=== PATIENT | female | born 1950 | race Caucasian/White ===

== ENCOUNTER 2023-11-17 13:22 | Outpatient (OUT) | payer MEDICARE, SELFPAY ==
--- NOTE | 2023-11-17 13:31 | VEIN_ITS ---
Patient Name: DIANA MEYER MR#: [id number] : 1950 Exam Date: 11/17/2023 Ordering Doctor: DR VARUN HARPER M.D. RADIOLOGY REPORT PROCEDURE: VC EXT VENOUS REFLUX RODOLFO LMTD COMPARISON: None. INDICATIONS: Pain due to varicose veins of bilateral legs I83.813 TECHNIQUE: Duplex imaging of the lower extremity to assess the deep and superficial venous system for the presence of deep or superficial venous incompetence and to document the location and severity of disease. The study includes evaluation of the great saphenous vein (GSV), anterior accessory saphenous vein (AASV) and small saphenous vein (SSV). Patient scanned in reverse Trendelenburg and standing. FINDINGS: RIGHT LOWER EXTREMITY: Saphenofemoral Junction Reflux: YesNo 7.8mm 0 sec GSV: Diam (mm) Reflux/ Time (sec) Proximal Thigh 7.3 No 0 Mid Thigh 2.5 No Distal Thigh 2.7 No Prox Calf 2.8 Yes 0.2 Mid Calf 0.9 Yes 3.2 Saphenopopliteal Junction Reflux: 4.0mm Yes 0.4 SSV: Proximal Calf 4.0 No Mid Calf 2.1 No AASV: Proximal Thigh 1.9 No Mid Thigh Distal Thigh Thrombi: No acute or chronic thrombus Compressibility: Normal. Flow: Mild deep venous reflux. Preforator: None. Tech Note: Varicose vein proximal medial lower leg measures 2.2 mm without reflux. LEFT LOWER EXTREMITY: Saphenofemoral Junction Reflux: Yes 8.8 mm 3.4 sec GSV: Diam (mm) Reflux/Time (sec) Proximal Thigh 6.0 Yes 1.1 Mid Thigh 5.8 Yes 2.6 Distal Thigh 5.1 Yes 0.3 Prox Calf 4.0 Yes 1.6 Mid Calf 2.5 Yes 0.6 Saphenopopliteal Junction Relux: 5.6 mm Yes 0.2 SSV: Proximal Calf 5.1 Yes 1.9 Mid Calf 3.1 No AASV: Proximal Thigh 2.9 No Mid Thigh 1.6 Yes 0.4 Distal Thigh Thrombi: No acute or chronic thrombus. Compressibility: Normal. Flow: Severe deep venous reflux. Police Lieutenant: None. Tech Note: Incompetent varicose vein proximal medial lower leg measures 3.1 mm with 2.7s reflux. Varicose vein distal medial thigh measures 2.7 mm with 1.8s reflux. CONCLUSION: 1. Moderate venous insufficiency of the left great saphenous vein with dilatation and saphenofemoral junction reflux 2. Borderline enlarged left leg varicose veins with reflux 3. Mild right and severe left deep vein reflux Dictated by: Varun Harper MD on 11/17/2023 at 14:46 Approved by: Varun Harper MD on 11/17/2023 at 14:48
--- NOTE | 2023-11-17 13:31 | VEIN_ITS ---
Patient Name: DIANA MEYER MR#: [id number] : 1950 Exam Date: 11/17/2023 Ordering Doctor: DR VARUN HARPER M.D. RADIOLOGY REPORT PROCEDURE: FACILITY [facility] - OFFICE VISIT INITIAL COMPARISON: None. PROGRESS NOTES: 73-year-old female who presents with a 20 year history of lower extremity pain swelling and varicose veins. The patient complains of discomfort with prolonged sitting and standing, partially relieved by rest, leg elevation and compression stockings. The patient had treatments approximately 15 years ago with phlebectomy and injection sclerotherapy. The patient does report increase in edema and pain in the last 1-2 years. 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 The patient denies any signs and symptoms to suggest arterial ischemia. The patient describes a family history significant for varicose veins in her mother and father. Stroke in her mother. Cancer in her father. . Social alcohol use. The patient has never smoked. No drug use. Past surgical history is significant for hysterectomy. No history of deep venous thrombus or pulmonary embolus. See separate history and physical for medication list. No prior treatment for varicose or spider veins. Nursing notes were reviewed. After history and physical exam I discussed at length the pathophysiology of venous hypertension and possible treatments, therapies and strategies available. We discussed at length the importance of elevating the lower extremities above the level of the heart, increased physical activity and compression stocking use. We discussed surgical interventions including ligation and stripping and phlebectomy. Discussed intravenous laser ablation, micro foam chemical ablation and injection sclerotherapy at length. I discussed with the patient that she had severe left leg deep vein reflux which could be medicated through the use of long-term compression stocking use. Ultrasound venous reflux study performed the same day was discussed at length with the patient. The report demonstrates mild right and moderate left great saphenous vein venous insufficiency. Left leg varicose veins. PHYSICAL EXAM: The right leg demonstrates mild scattered reticular and spider veins. No active ulceration, subcutaneous edema or skin discoloration The left leg demonstrates mild scattered varicose, moderate reticular and spider veins. No active ulceration or skin discoloration. Mild subcutaneous edema Both thighs, legs and feet were symmetrically warm to the touch. Good posterior tibial and dorsalis pedis pulses were present bilaterally. VEIN/VC Facility NEW Comprehensive IMPRESSION: 1. Minimal right and moderate left great saphenous vein venous insufficiency 2. Mild left lower extremity varicose veins 3. Mild left lower extremity subcutaneous edema 4. No definite flow significant arterial disease 5. CEAP: C3, Ep, As, Pr PLAN: 1. Endovenous laser ablation of the left great saphenous vein 2. Injection sclerotherapy bilateral reticular spider veins 3. Views of by 4. 20-30 compression stockings continue leg elevation and increased physical activity for symptomatic relief Nurse notes, history and physical were reviewed and confirmed, see attached forms. The nurse was present throughout the physical exam and consultation Dictated by: Varun Harper MD on 11/17/2023 at 15:16 Approved by: Varun Harper MD on 11/17/2023 at 15:20
== END 2023-11-17 13:23 | disposition home or self-care (01) ==
PROVIDERS: PCP Radiology Diagnostic Radiology; Visit Provider Radiology Diagnostic Radiology
DX: I83.813 Varicose veins of bilateral lower extremities with pain (principal)
CPT/HCPCS: 93970; G0463

== ENCOUNTER 2024-02-22 10:09 | Outpatient (OUT) | payer MEDICARE, SELFPAY ==
[2024-02-22 08:22] VITALS: BMI 24.4
--- NOTE | 2024-02-22 08:22 | VEINCLINIC_ITS ---
Vital Signs 02/22/24 08:22 02/22/24 10:18 Height 5 ft 4 in Weight 64.41 kg BMI 24.4 BP 130/72 BP Location Left Brachial BP Position Standing BP Cuff Size Adult BP Source Manual Cuff Respiration 18 Pulse 91 H Pulse Source Monitor Pulse Oximetry (%) 95 Oxygen Delivery Method Room Air Comment The patient's blood pressure is elevated. Varicose Veins Patient in this day for EVLT of left GSV Patient is a 73 year old female in this day with c/o bilateral lower leg pain and edema x15 years. Rahul Maldonado MD personally performed the services described in this documentation, as scribed by Matt Hein RN in my presence and it is both accurate and complete. IMatt RN, am scribing for, and in the presence of, Dr. Rahul Steen and in the presence of the patient. knee: bilateral (patient c/o varicose veins bilateral legs), calf: bilateral, ankle: bilateral and anderson: bilateral aching, dull and tender 3 20 years Worsened in recent months: Yes standing elevating extremities, compression stockings and exercise Reports muscle spasms of leg, heaviness, limb pain and edema History of lower extremity trauma: No Superficial thrombophlebitis: No Family history of varicose veins: yes Has patient had previous lower extremity venous surgery: Yes Patient has previously received the following treatment(s) for lower extremity varicose veins: Reports phlebectomy and sclerotherapy Does patient have a history of : yes Does patient intend to have future pregnancies: no Has patient had lower extremity venous scan with relux testing: Yes Support hose used: Yes Problems walking or doing physical activity: Yes How does it affect you: often had to stop and elevate legs/feet Do you walk much: Yes Do you stand much: Yes Review of Systems ROS Narrative Rahul Maldonado MD personally performed the services described in this documentation, as scribed by Matt Hein RN in my presence and it is both accurate and complete. Matt Maldonado RN, am scribing for, and in the presence of, Dr. Rahul Steen and in the presence of the patient. Status of ROS 10 or more systems reviewed and unremark able except as noted in history and below Cardiovascular Reports: edema Integumentary/Breast Reports: non-healing lesion and changes in skin color Neurological Reports: weakness in extremities Hematologic/Lymphatic Reports: easy bruising and easy bleeding PFSH PFSH Medical History (Updated 02/22/24 @ 08:34 by Matt Hein) Fibromyalgia ?M79.7 - Fibromyalgia (ICD-10) Phlebitis and thrombophlebitis of superficial vessels of right lower extremity ?I80.01 - Phlebitis and thrombophlebitis of superficial vessels of right lower extremity (ICD-10) Phlebitis and thrombophlebitis of superficial vessels of left lower extremity ?I80.02 - Phlebitis and thrombophlebitis of superficial vessels of left lower extremity (ICD-10) Pain due to varicose veins of both lower extremities ?I83.813 - Varicose veins of bilateral lower extremities with pain (ICD-10) Surgical History (Updated 02/22/24 @ 08:34 by Matt Hein) H/O: hysterectomy ?Z90.710 - Acquired absence of both cervix and uterus (ICD-10) Family History (Updated 02/22/24 @ 08:35 by Matt Hein) Other Family history of cancer Family history of stroke Varicose veins of bilateral lower extremities with pain Social History (Updated 02/22/24 @ 08:37 by Matt Hein) Within the past year, how often did you have a drink containing alcohol: 2-4 times a month Smoking status: Never smoker Non-prescribed substance use: denies use Meds Home Medications and Allergies Home Medications ?Medication ?Instructions ?Recorded ?Confirmed ?Type amitriptyline .ROUTE 02/22/24 History citalopram .ROUTE 02/22/24 History Allergies Allergy/AdvReac Type Severity Reaction Status Date / Time aspirin Allergy Rash Verified 02/22/24 10:54 povidone-iodine Allergy Rash Verified 02/22/24 10:54 [From Betadine] Exam Narrative Exam Narrative: IRahul MD personally performed the services described in this documentation, as scribed by Matt Hein RN in my presence and it is both accurate and complete. IMatt RN, am scribing for, and in the presence of, Dr. Rahul Steen and in the presence of the patient. Constitutional Documenting provider has reviewed patient's vital signs: yes Common normals: oriented x3 Cardio Peripheral pulses: dorsalis pedis pulses present Extremity Common normals: normal capillary refill General: edema Right lower extremity: lower leg Right lower leg: inspection and palpation Left lower extremity: lower leg Left lower leg: inspection and palpation Neuro Common normals: oriented x3 Assessment and Plan Assessment and Plan (1) Pain due to varicose veins of both lower extremities: Plan Plan of care: Risks and benefits of the procedure were discussed at length and informed written consent was obtained.? Time-out completed for verification of correct patient, procedure and site.? Staff present during time-out: Matt Hein RN,? Varun Harper MD, Danae Lopez RDMS,RVT, Suzi ([employer] student) Time Out Time_1053 Patient prepped and procedure performed in usual sterile fashion. Risk of injury related to use of Diode laser and/or laser devices__CR___ ? Serial number of laser used :? [id number] Control panel self test performed, electrical cords in good condition, floor is dry, basin of water available, fire extinguisher in close proximity_CR__ Polycarbonate goggles available and Laser warning signs outside of doors___CR__ Eye protection provided to patient and staff in room_CR___ Use of laser retardant drapes and dull blackened instruments as directed__CR___ Use of nonflammable prep solutions and use of saline soaked sponges to protect tissues as indicated _CR___ Length _55___ cm Laser operated by __Dr. Steen Physician verbal confirmation laser locked in place__CR__ Laser start time (date and time) _02/22/2024@_1108 Laser stop time(date and time) _02/22/2024@_1116 An _8.0___ Average laser use __3282 Joules Average laser use__410 seconds Pulse continuous ___CR_? Pulse intermittent ___ Amount of Tumescent used _250cc Evaluated patient for signs and symptoms of electrical injury __CR___ ? Skin clear at insertion site __CR___ Patient tolerated procedure well.? Left leg Coban dressing applied to access site.? Applied Left thigh high leg compression stocking. Will return on 02/29/2024 for Left leg limited venous ultrasound and exam. IRahul MD personally performed the services described in this documentation, as scribed by Matt Hein RN in my presence and it is both accurate and complete. IMatt RN, am scribing for, and in the presence of, Dr. Rahul Steen and in the presence of the patient.
--- NOTE | 2024-02-22 08:40 | P.DS_ITS ---
Discharge Plan Discharge Disposition: Home, Self-Care Outpatient Diagnostics: VC Facility EST LMTD (Routine) Timeframe: 2 Weeks Facility: [facility] - Location: [facility] Ordered By: Varun Harper VC EXT Venous Reflux LT LMTD (Routine) Timeframe: 2 Weeks Facility: [facility] - Location: Vein Center Ordered By: Varun Harper Follow Up Appointments: 02/29/2024@1330 Plan of Treatment: f/u evaluation by physician with left leg limited u/s Patient Instructions: Endovenous Ablation (DC) Print Language: [place] Discharge Date/Time: 02/22/24 10:59
[2024-02-22] MEDS: 0.9 % SODIUM CHLORIDE 500 ML, LIDOCAINE HCL 20 ML, SODIUM BICARBONATE 10 MEQ INJ (10:10)
[2024-02-22] MEDS: LIDOCAINE HCL 1% 100 MG/10 ML MDV INJ (10:10)
--- NOTE | 2024-02-22 10:10 | VEIN_ITS ---
[address] [address] Patient Name: DIANA MEYER MRN: [id number] date: 1950 Sex: F Assigned Patient Location: Current Patient Location: Accession/Order Number: [id number] Exam Date: 02/22/2024 10:14 Report Date: 02/22/2024 12:13 At the request of: ALEX LYNCH Procedure: VC Endovenous Ablation 1VeinLT EXAMINATION: VC Endovenous Ablation 1VeinLT HISTORY: I83.813 Bilateral painful varicose veins The risks and benefits of the procedure had been previously discussed, and were rediscussed at length. Informed written consent was obtained. Matt Hein RN and Danae Lopez RDMS, RVT assisted. Time out procedure was performed. The left lower extremity was prepared and draped in the usual sterile fashion to allow knee flexion in the sterile field. Duplex ultrasound probe was draped in a sterile cover, sterile transmission gel was used. Venous mapping was performed with the areas of dilation and large tributaries marked. The total length was 55 cm from the entry mid calf to 3 cm below the Saphenofemoral junction. The diameter of the left great saphenous vein ranged from 6.0 mm. A 30 gauge needle and 1% buffered lidocaine was used to anesthetize the entry site. A 4 mm incision was made with a scalpel and the saphenous vein was entered percutaneously under direct ultrasound guidance with a micropuncture set, a single stick was successful in gaining access. A micro-guide wire was inserted and the needle removed. A micro-set including a dilator was inserted over the microwire and the needle and dilator were removed. A guide wire was inserted through the micro-set and guided through the saphenous vein to the saphenofemoral junction. The dilator was removed and an introducer sheath was inserted over the wire until the end of the sheath entered the saphenofemoral junction. The dilator and wire were removed and the 600 micron fiber was introduced and placed and positioned so that it extended beyond the sheath and was 3 cm distal to the saphenofemoral or saphenopopliteal junction. Final position of the fiber was determined by ultrasound guidance and duplex imaging. Tumescent anesthetic was delivered by ultrasound guidance. 250 cc of fluid was delivered along the entire course of the saphenous vein. The solution consisted of 1000 cc of normal saline with 40 mL of 1% lidocaine and 20 mL of sodium bicarbonate. A final positioning check was made. The energy source was turned on by means of the foot pedal and the fiber and sheath were withdrawn. The total number of Joules delivered was 3282. The laser was active for 410 seconds under continuous pulse, average laser use of 8 J. Laser start time: 11:08 AM Laser stop time: 11:16 AM Date: 02/22/2024. A duplex ultrasound revealed compressibility and flow at the saphenofemoral junction immediately after the procedure. Hemostasis at the access site was achieved. The skin incision of the saphenous vein was closed with a 4 x 4. A compression stocking was applied. Postop instructions were given. A follow up appointment was recommended and scheduled. The patient tolerated the procedure well. Electronically authenticated by: JAY SOTELO Date: 02/22/2024 12:13
[2024-02-22 10:18] VITALS: BP 130/72; PULSE 91; O2SAT 95
--- NOTE | 2024-02-22 10:59 | W.VEIN ---
Discharge Plan Discharge Disposition: Home, Self-Care Outpatient Diagnostics: VC Facility EST LMTD (Routine) Timeframe: 2 Weeks Facility: [facility] - Location: Vein Center Ordered By: Varun Harper VC EXT Venous Reflux LT LMTD (Routine) Timeframe: 2 Weeks Facility: [facility] - Location: Vein Center Ordered By: Varun Hraper Follow Up Appointments: 02/29/2024@1330 Plan of Treatment: f/u evaluation by physician with left leg limited u/s Patient Instructions: Endovenous Ablation (DC) Print Language: Taiwanese Discharge Date/Time: 02/22/24 10:59
== END 2024-02-22 10:59 | disposition home or self-care (01) ==
LOC: VC 10:09
PROVIDERS: PCP Radiology Diagnostic Radiology; Visit Provider Radiology Diagnostic Radiology
DX: I83.813 Varicose veins of bilateral lower extremities with pain (principal)
CPT/HCPCS: 36478

== ENCOUNTER 2024-03-01 13:57 | Outpatient (OUT) | payer MEDICARE, SELFPAY ==
[2024-02-28 15:09] VITALS: BMI 24.2
--- NOTE | 2024-02-28 15:09 | V.VEINS.HP ---
Vital Signs 02/28/24 15:09 Height 5 ft 4 in Weight 64 kg BMI 24.2 Varicose Veins Patient in this day for follow up ultrasound post EVLT of left GSV Varun Maldonado MD personally performed the services described in this documentation, as scribed by Danae Lopez RVT, RDMS in my presence and it is both accurate and complete. IDanae RVT, RDMS, am scribing for, and in the presence of, Dr. Varun Harper and in the presence of the patient. knee: bilateral (patient c/o varicose veins bilateral legs), calf: bilateral, ankle: bilateral and anderson: bilateral aching, dull and tender 3 20 years Worsened in recent months: Yes standing elevating extremities, compression stockings and exercise Reports muscle spasms of leg, heaviness, limb pain and edema History of lower extremity trauma: No Superficial thrombophlebitis: No Family history of varicose veins: yes Has patient had previous lower extremity venous surgery: Yes Patient has previously received the following treatment(s) for lower extremity varicose veins: Reports phlebectomy and sclerotherapy Does patient have a history of : yes Does patient intend to have future pregnancies: no Has patient had lower extremity venous scan with relux testing: Yes Support hose used: Yes Problems walking or doing physical activity: Yes How does it affect you: often had to stop and elevate legs/feet Do you walk much: Yes Do you stand much: Yes Review of Systems ROS Narrative Varun Maldonado MD personally performed the services described in this documentation, as scribed by Danae Lopez RVT, RDMS in my presence and it is both accurate and complete. I, Danae Lopez RVT, RDMS, am scribing for, and in the presence of, Dr. Varun Harper and in the presence of the patient. Status of ROS 10 or more systems reviewed and unremarkable except as noted in history and below Cardiovascular Reports: edema Integumentary/Breast Reports: non-healing lesion and changes in skin color Neurological Reports: weakness in extremities Hematologic/Lymphatic Reports: easy bruising and easy bleeding [facility] Medical History (Updated 02/22/24 @ 08:34 by Matt Hein) Fibromyalgia ?M79.7 - Fibromyalgia (ICD-10) Phlebitis and thrombophlebitis of superficial vessels of right lower extremity ?I80.01 - Phlebitis and thrombophlebitis of superficial vessels of right lower extremity (ICD-10) Phlebitis and thrombophlebitis of superficial vessels of left lower extremity ?I80.02 - Phlebitis and thrombophlebitis of superficial vessels of left lower extremity (ICD-10) Pain due to varicose veins of both lower extremities ?I83.813 - Varicose veins of bilateral lower extremities with pain (ICD-10) Surgical History (Updated 02/22/24 @ 08:34 by Matt Hein) H/O: hysterectomy ?Z90.710 - Acquired absence of both cervix and uterus (ICD-10) Family History (Updated 02/22/24 @ 08:35 by Matt Hein) Other Family history of cancer Family history of stroke Varicose veins of bilateral lower extremities with pain Social History (Updated 02/22/24 @ 08:37 by Matt Hein) Within the past year, how often did you have a drink containing alcohol: 2-4 times a month Smoking status: Never smoker Non-prescribed substance use: denies use Meds Home Medications and Allergies Home Medications ?Medication ?Instructions ?Recorded ?Confirmed ?Type amitriptyline .ROUTE 02/22/24 History citalopram .ROUTE 02/22/24 History Allergies Allergy/AdvReac Type Severity Reaction Status Date / Time aspirin Allergy Rash Verified 02/22/24 10:54 povidone-iodine Allergy Rash Verified 02/22/24 10:54 [From Betadine] Exam Narrative Exam Narrative: Varun Maldonado MD personally performed the services described in this documentation, as scribed by Danae Lopez RVT, RDMS in my presence and it is both accurate and complete. Danae Maldonado RVT, RDMS, am scribing for, and in the presence of, Dr. Varun Harper and in the presence of the patient. Constitutional Documenting provider has reviewed patient's vital signs: yes Common normals: oriented x3 Cardio Peripheral pulses: dorsalis pedis pulses present Extremity Common normals: normal capillary refill General: edema Right lower extremity: lower leg Right lower leg: inspection and palpation Left lower extremity: lower leg Left lower leg: inspection and palpation Neuro Common normals: oriented x3 Results Imaging Venous US: Radiologist's impression: The ultrasound demonstrates Assessment and Plan Assessment and Plan (1) Phlebitis and thrombophlebitis of superficial vessels of left lower extremity: (2) Pain due to varicose veins of both lower extremities: Plan Patient in today for follow up ultrasound of lower extremity following treatment of EVLT of left leg GSV completed on 02/22/24.
--- NOTE | 2024-02-28 15:12 | W.VEIN ---
Discharge Plan Discharge Disposition: Home, Self-Care Outpatient Diagnostics: VC INJ Sclerosing SOLMULT Vein (Routine) Timeframe: 2 Weeks Facility: [facility] - Location: Vein Center Ordered By: Varun Harper Plan of Treatment: Sclerotherapy Print Language: Pashto
--- NOTE | 2024-03-01 13:59 | VEIN_ITS ---
Patient Name: DIANA MEYER MR#: [id number] : 1950 Exam Date: 03/01/2024 Ordering Doctor: DR VARUN HARPER M.D. RADIOLOGY REPORT PROCEDURE: VC EXT VENOUS LT LIMITED COMPARISON: None. INDICATIONS: I80.02 - Phlebitis and thrombophlebitis of superficial veins left leg TECHNIQUE: Lower extremity de la o scale and Duplex Doppler evaluation of the deep venous system from the inguinal ligament through the calf veins. FINDINGS: REGION: Left lower extremity. THROMBI: Negative for DVT. Heat induced thrombus in left GSV 1.0 cm from SFJ and extends to medial ankle/foot. COMPRESSIBILITY: Non-compressible segments.Non-compressible segments corresponding to thrombus FLOW: Areas of no flow corresponding to thrombus CONCLUSION: Post ablation occlusion of the left great saphenous vein with heat induced thrombus 1 cm from the saphenofemoral junction Dictated by: Varun Harper MD on 03/01/2024 at 14:30 Approved by: aVrun Harper MD on 03/01/2024 at 14:30
--- NOTE | 2024-03-01 13:59 | VEIN_ITS ---
Patient Name: DIANA MEYER MR#: [id number] : 1950 Exam Date: 03/01/2024 Ordering Doctor: DR VARUN HARPER M.D. RADIOLOGY REPORT PROCEDURE: FACILITY EST [facility] - OFFICE VISIT FOLLOW UP COMPARISON: None. PROGRESS NOTES: The patient reports no significant problems following intravenous laser ablation of saphenous vein. The patient require oral analgesics. The patient did wear her compression stocking. Physical exam demonstrates moderate bruising along the proximal to mid left medial thigh likely related to tumescence injection. No erythema warmth to suggest cellulitis or thrombophlebitis. Active ulceration. The incision is healed. The thrombosed left great saphenous vein can be partially palpated. Review of the ultrasound performed the same day demonstrates occlusive thrombus extending throughout the treated left great saphenous vein. Heat induced thrombus is 1.5 cm from the saphenofemoral junction. No deep vein thrombus. The patient expressed a desire to proceed with treatment of reticular and spider veins with injection sclerotherapy. VEIN/ Facility EST TD IMPRESSION: 1. Successful ablation of the left great saphenous vein 2. Persistent bilateral spider and reticular veins. PLAN: Injection sclerotherapy Nurse notes, history and physical were reviewed and confirmed, see attached forms. The nurse was present throughout the physical exam and consultation Dictated by: Varun Harper MD on 03/01/2024 at 14:39 Approved by: Varun Harper MD on 03/01/2024 at 14:42
--- NOTE | 2024-03-01 14:11 | P.DS_ITS ---
Discharge Plan Discharge Disposition: Home, Self-Care Outpatient Diagnostics: VC EXT Venous LT Limited (Routine) Timeframe: 2 Weeks Facility: [facility] - Location: [facility]in Center Ordered By: Varun Harper VC INJ Sclerosing SOLMULT Vein (Routine) Timeframe: 2 Weeks Facility: [facility] - Location: Vein Center Ordered By: Varun Harper Follow Up Appointments: Patient to call Plan of Treatment: Sclerotherapy Print Language: Greek Discharge Date/Time: 03/01/24 14:41
--- NOTE | 2024-03-01 14:11 | V.VEINS.HP ---
Vital Signs 02/28/24 15:09 03/01/24 14:12 Height 5 ft 4 in 5 ft 4 in Weight 64 kg 64 kg BMI 24.2 24.2 BP 128/75 BP Location Left Brachial BP Position Sitting BP Cuff Size Adult BP Source Automatic Cuff Respiration 16 Pulse 72 Pulse Oximetry (%) 98 Comment The patient's blood pressure is elevated. Varicose Veins Patient in today for follow up ultrasound of left lower extremity following EVLT of left GSV completed on 02/22/24. Varun Maldonado MD personally performed the services described in this documentation, as scribed by Kimberly Egan RDMS in my presence and it is both accurate and complete. I, Kimberly Egan RDMS, am scribing for, and in the presence of, Dr. Varun Harper and in the presence of the patient. knee: bilateral (patient c/o varicose veins bilateral legs), calf: bilateral, ankle: bilateral and anderson: bilateral aching, dull and tender 3 20 years Worsened in recent months: Yes standing elevating extremities, compression stockings and exercise Reports muscle spasms of leg, heaviness, limb pain and edema History of lower extremity trauma: No Superficial thrombophlebitis: No Family history of varicose veins: yes Has patient had previous lower extremity venous surgery: Yes Patient has previously received the following treatment(s) for lower extremity varicose veins: Reports phlebectomy and sclerotherapy Does patient have a history of : yes Does patient intend to have future pregnancies: no Has patient had lower extremity venous scan with relux testing: Yes Support hose used: Yes Problems walking or doing physical activity: Yes How does it affect you: often had to stop and elevate legs/feet Do you walk much: Yes Do you stand much: Yes Review of Systems ROS Narrative Varun Maldonado MD personally performed the services described in this documentation, as scribed by Kimberly Egan RDMS in my presence and it is both accurate and complete. Kimberly Maldonado RDMS, am scribing for, and in the presence of, Dr. Varun Harper and in the presence of the patient. Status of ROS 10 or more systems reviewed and unremarkable except as noted in history and below Cardiovascular Reports: edema Integumentary/Breast Reports: non-healing lesion and changes in skin color Neurological Reports: weakness in extremities Hematologic/Lymphatic Reports: easy bruising and easy bleeding PFSH PFSH Medical History (Updated 02/22/24 @ 08:34 by Matt Hein) Fibromyalgia ?M79.7 - Fibromyalgia (ICD-10) Phlebitis and thrombophlebitis of superficial vessels of right lower extremity ?I80.01 - Phlebitis and thrombophlebitis of superficial vessels of right lower extremity (ICD-10) Phlebitis and thrombophlebitis of superficial vessels of left lower extremity ?I80.02 - Phlebitis and thrombophlebitis of superficial vessels of left lower extremity (ICD-10) Pain due to varicose veins of both lower extremities ?I83.813 - Varicose veins of bilateral lower extremities with pain (ICD-10) Surgical History (Updated 02/22/24 @ 08:34 by Matt Hein) H/O: hysterectomy ?Z90.710 - Acquired absence of both cervix and uterus (ICD-10) Family History (Updated 02/22/24 @ 08:35 by Matt Hein) Other Family history of cancer Family history of stroke Varicose veins of bilateral lower extremities with pain Social History (Updated 02/22/24 @ 08:37 by Matt Hein) Within the past year, how often did you have a drink containing alcohol: 2-4 times a month Smoking status: Never smoker Non-prescribed substance use: denies use Meds Home Medications and Allergies Home Medications ?Medication ?Instructions ?Recorded ?Confirmed ?Type amitriptyline .ROUTE 02/22/24 History citalopram .ROUTE 02/22/24 History Allergies Allergy/AdvReac Type Severity Reaction Status Date / Time aspirin Allergy Rash Verified 02/22/24 10:54 povidone-iodine Allergy Rash Verified 02/22/24 10:54 [From Betadine] Exam Narrative Exam Narrative: Patient has no complaints today. Varun Maldonado MD personally performed the services described in this documentation, as scribed by Kimberly Egan RDMS in my presence and it is both accurate and complete. IKimberly RDMS, am scribing for, and in the presence of, Dr. Varun Harper and in the presence of the patient. Constitutional Documenting provider has reviewed patient's vital signs: yes Common normals: oriented x3 Cardio Peripheral pulses: dorsalis pedis pulses present Extremity Common normals: normal capillary refill General: edema Right lower extremity: lower leg Right lower leg: inspection and palpation Left lower extremity: lower leg Left lower leg: inspection (Mild bruising medial thigh) and palpation Neuro Common normals: oriented x3 Results Imaging Venous US: Radiologist's impression: Heat induced thrombus in left GSV 1.0 cm from SFJ and extends to medial ankle/foot. Varun Maldonado MD personally performed the services described in this documentation, as scribed by Kimberly Egan RDMS in my presence and it is both accurate and complete. Kimberly Maldonado RDMS, am scribing for, and in the presence of, Dr. Varun Harper and in the presence of the patient. Assessment and Plan Assessment and Plan (1) Phlebitis and thrombophlebitis of superficial vessels of left lower extremity: (2) Pain due to varicose veins of both lower extremities: Plan Patient is going to call when she is ready to schedule for sclerotherapy. Varun Maldonado MD personally performed the services described in this documentation, as scribed by Kimberly Egan RDMS in my presence and it is both accurate and complete. Kimberly Maldonado RDMS am scribing for, and in the presence of, Dr. Varun Harper and in the presence of the patient.
[2024-03-01 14:12] VITALS: BP 128/75; PULSE 72; O2SAT 98; BMI 24.2
== END 2024-03-01 14:41 | disposition home or self-care (01) ==
LOC: VC 13:57
PROVIDERS: PCP Radiology Diagnostic Radiology; Visit Provider Radiology Diagnostic Radiology
DX: I80.02 Phlebitis and thrombophlebitis of superficial vessels of left lower extremity (principal)
CPT/HCPCS: 93971; G0463

== ENCOUNTER 2024-03-27 13:41 | Outpatient (OUT) | payer MEDICARE, SELFPAY ==
--- NOTE | 2024-03-24 08:39 | V.VEINS.HP ---
Vital Signs 03/27/24 13:45 BP 120/75 BP Location Left Brachial BP Position Sitting BP Cuff Size Adult BP Source Manual Cuff Respiration 16 Pulse 95 H Pulse Source Monitor Pulse Oximetry (%) 97 Comment The patient's blood pressure is elevated. Varicose Veins Patient in today for sclerotherapy Varun Maldonado MD personally performed the services described in this documentation, as scribed by Matt Hein RN in my presence and it is both accurate and complete. IMatt RN, am scribing for, and in the presence of, Dr. Varun Harper and in the presence of the patient. knee: bilateral (patient c/o varicose veins bilateral legs), calf: bilateral, ankle: bilateral and anderson: bilateral aching, dull and tender 3 20 years Worsened in recent months: Yes standing elevating extremities, compression stockings and exercise Reports muscle spasms of leg, heaviness, limb pain and edema History of lower extremity trauma: No Superficial thrombophlebitis: No Family history of varicose veins: yes Has patient had previous lower extremity venous surgery: Yes Patient has previously received the following treatment(s) for lower extremity varicose veins: Reports phlebectomy and sclerotherapy Does patient have a history of : yes Does patient intend to have future pregnancies: no Has patient had lower extremity venous scan with relux testing: Yes Support hose used: Yes Problems walking or doing physical activity: Yes How does it affect you: often had to stop and elevate legs/feet Do you walk much: Yes Do you stand much: Yes Review of Systems ROS Narrative Varun Maldonado MD personally performed the services described in this documentation, as scribed by Matt Hein RN in my presence and it is both accurate and complete. IMatt RN, am scribing for, and in the presence of, Dr. Varun Harper and in the presence of the patient. Status of ROS 10 or more systems reviewed and unremarkable except as noted in history and below Cardiovascular Reports: edema Integumentary/Breast Reports: non-healing lesion and changes in skin color Neurological Reports: weakness in extremities Hematologic/Lymphatic Reports: easy bruising and easy bleeding [facility] Medical History (Updated 02/22/24 @ 08:34 by Matt Hein) Fibromyalgia ?M79.7 - Fibromyalgia (ICD-10) Phlebitis and thrombophlebitis of superficial vessels of right lower extremity ?I80.01 - Phlebitis and thrombophlebitis of superficial vessels of right lower extremity (ICD-10) Phlebitis and thrombophlebitis of superficial vessels of left lower extremity ?I80.02 - Phlebitis and thrombophlebitis of superficial vessels of left lower extremity (ICD-10) Pain due to varicose veins of both lower extremities ?I83.813 - Varicose veins of bilateral lower extremities with pain (ICD-10) Surgical History (Updated 02/22/24 @ 08:34 by Matt Hein) H/O: hysterectomy ?Z90.710 - Acquired absence of both cervix and uterus (ICD-10) Family History (Updated 02/22/24 @ 08:35 by Matt Hein) Other Family history of cancer Family history of stroke Varicose veins of bilateral lower extremities with pain Social History (Updated 02/22/24 @ 08:37 by Matt Hein) Within the past year, how often did you have a drink containing alcohol: 2-4 times a month Smoking status: Never smoker Non-prescribed substance use: denies use Meds Home Medications and Allergies Home Medications ?Medication ?Instructions ?Recorded ?Confirmed ?Type amitriptyline .ROUTE 02/22/24 History citalopram .ROUTE 02/22/24 History Allergies Allergy/AdvReac Type Severity Reaction Status Date / Time aspirin Allergy Rash Verified 02/22/24 10:54 povidone-iodine Allergy Rash Verified 02/22/24 10:54 [From Betadine] Exam Narrative Exam Narrative: Varun Maldonado MD personally performed the services described in this documentation, as scribed by Matt Hein RN in my presence and it is both accurate and complete. Matt Maldonado RN, am scribing for, and in the presence of, Dr. Varun Harper and in the presence of the patient. Constitutional Documenting provider has reviewed patient's vital signs: yes Common normals: oriented x3 Cardio Peripheral pulses: dorsalis pedis pulses present Extremity Common normals: normal capillary refill General: edema Right lower extremity: lower leg Right lower leg: inspection and palpation Left lower extremity: lower leg Left lower leg: inspection (Mild bruising medial thigh) and palpation Neuro Common normals: oriented x3 Assessment and Plan Assessment and Plan (1) Pain due to varicose veins of both lower extremities: Plan Patient to return for microfoam chemical ablation right leg Varun Maldonado MD personally performed the services described in this documentation, as scribed by Matt Hein RN in my presence and it is both accurate and complete. Matt Maldonado RN, am scribing for, and in the presence of, Dr. Varun Harper and in the presence of the patient. Procedures Procedure Instructions Procedures sclerotherapy: Risks and benefits of the procedure were discussed at length and informed written consent was obtained.? Time-out procedure was performed and the correct patient and procedure were confirmed.? Staff present during time-out: Matt Hein RN and Varun Harper MD.? Patient prepped and procedure performed in usual sterile fashion. Injections performed by and Matt Hein RN Sclerosing Agent:?? 4cc 0.5% Polidocanol Site Injected: left leg Number of Injections: 29 Anesthesia: Supercooled air The patient tolerated the procedure well without complication.? Hemostasis was obtained and thigh-high compression stocking was applied by patient.? Instructed patient to wear stocking for at least 96 hours and sleep with it and only remove for showering.? Will wear stocking for 2 weeks.? The patient verbalizes understanding and states they will comply.? Patient was given post-procedure instructions. Patient was discharged in good condition.? Scheduled to undergo additional injection sclerotherapy on 04/05/2024 Varun Maldonado MD personally performed the services described in this documentation, as scribed by Matt Hein RN in my presence and it is both accurate and complete. Matt Maldonado RN, am scribing for, and in the presence of, Dr. Varun Harper and in the presence of the patient.
--- NOTE | 2024-03-24 08:40 | W.VEIN ---
Discharge Plan Discharge Disposition: Home, Self-Care Outpatient Diagnostics: VC INJ Sclerosing SOLMULT Vein (Routine) Timeframe: 2 Weeks Facility: [facility] - Location: Vein Center Ordered By: Varun Harper Follow Up Appointments: 03/05/2024 Plan of Treatment: sclerotherapy right leg Patient Instructions: Polidocanol (By injection) Print Language: Thai Discharge Date/Time: 03/27/24 14:40
--- NOTE | 2024-03-27 13:43 | VEIN_ITS ---
[address] [address] Patient Name: DIANA MEYER MRN: [id number] date: 1950 Sex: F Assigned Patient Location: VC Current Patient Location: Accession/Order Number: [id number] Exam Date: 03/27/2024 13:43 Report Date: 03/27/2024 16:10 At the request of: ALEX LYNCH Procedure: VC INJ Sclerosing SOLMULT Vein EXAMINATION: VC INJ Sclerosing SOLMULT Vein HISTORY: I83.813 - Varicose veins of bilateral lower extremities w... COMPARISON: No relevant comparison available. TECHNIQUE: The risks and benefits of the procedure were explained at length to the patient and informed written consent was obtained. Matt Hein was present and assisted. The procedure was performed under sterile technique. The patient's leg was wrapped with Coban and postprocedural verbal and written instructions provided. SCLEROSANT: 4 cc, 0.5% polidocanol VEIN(S) INJECTED: 29 veins in the left leg VISUALIZATION: Ultrasound was not used to visualize the sclerosant ANESTHESIA: Supercooled air COMPLICATIONS: None VEIN/VC INJ Sclerosing SOLMULT Vein IMPRESSION: Technically successful sclerotherapy as described Electronically authenticated by: ALEX LYNCH Date: 03/27/2024 16:10
[2024-03-27 13:45] VITALS: BP 120/75; PULSE 95; O2SAT 97
== END 2024-03-27 14:40 | disposition home or self-care (01) ==
LOC: VC 13:42
PROVIDERS: PCP Radiology Diagnostic Radiology; Visit Provider Radiology Diagnostic Radiology
DX: I83.813 Varicose veins of bilateral lower extremities with pain (principal)
CPT/HCPCS: 36471

== ENCOUNTER 2024-04-18 12:45 | Outpatient (OUT) | payer MEDICARE, SELFPAY ==
--- NOTE | 2024-03-29 14:05 | V.VEINS.HP ---
Varicose Veins Patient in today for sclerotherapy Rahul Maldonado MD personally performed the services described in this documentation, as scribed by Matt Hein RN in my presence and it is both accurate and complete. Matt Maldonado RN, am scribing for, and in the presence of, Dr. Rahul Steen and in the presence of the patient. knee: bilateral (patient c/o varicose veins bilateral legs), calf: bilateral, ankle: bilateral and anderson: bilateral aching, dull and tender 3 20 years Worsened in recent months: Yes standing elevating extremities, compression stockings and exercise Reports muscle spasms of leg, heaviness, limb pain and edema History of lower extremity trauma: No Superficial thrombophlebitis: No Family history of varicose veins: yes Has patient had previous lower extremity venous surgery: Yes Patient has previously received the following treatment(s) for lower extremity varicose veins: Reports phlebectomy and sclerotherapy Does patient have a history of : yes Does patient intend to have future pregnancies: no Has patient had lower extremity venous scan with relux testing: Yes Support hose used: Yes Problems walking or doing physical activity: Yes How does it affect you: often had to stop and elevate legs/feet Do you walk much: Yes Do you stand much: Yes Review of Systems ROS Narrative Rahul Maldonado MD personally performed the services described in this documentation, as scribed by Matt Hein RN in my presence and it is both accurate and complete. Matt Maldonado RN, am scribing for, and in the presence of, Dr. Rahul Steen and in the presence of the patient. Status of ROS 10 or more systems reviewed and unremarkable except as noted in history and below Cardiovascular Reports: edema Integumentary/Breast Reports: non-healing lesion and changes in skin color Neurological Reports: weakness in extremities Hematologic/Lymphatic Reports: easy bruising and easy bleeding [facility] Medical History (Updated 02/22/24 @ 08:34 by Matt Hein) Fibromyalgia ?M79.7 - Fibromyalgia (ICD-10) Phlebitis and thrombophlebitis of superficial vessels of right lower extremity ?I80.01 - Phlebitis and thrombophlebitis of superficial vessels of right lower extremity (ICD-10) Phlebitis and thrombophlebitis of superficial vessels of left lower extremity ?I80.02 - Phlebitis and thrombophlebitis of superficial vessels of left lower extremity (ICD-10) Pain due to varicose veins of both lower extremities ?I83.813 - Varicose veins of bilateral lower extremities with pain (ICD-10) Surgical History (Updated 02/22/24 @ 08:34 by Matt Hein) H/O: hysterectomy ?Z90.710 - Acquired absence of both cervix and uterus (ICD-10) Family History (Updated 02/22/24 @ 08:35 by Matt Hein) Other Family history of cancer Family history of stroke Varicose veins of bilateral lower extremities with pain Social History (Updated 02/22/24 @ 08:37 by Matt Hein) Within the past year, how often did you have a drink containing alcohol: 2-4 times a month Smoking status: Never smoker Non-prescribed substance use: denies use Meds Home Medications and Allergies Home Medications ?Medication ?Instructions ?Recorded ?Confirmed ?Type amitriptyline .ROUTE 02/22/24 History citalopram .ROUTE 02/22/24 History Allergies Allergy/AdvReac Type Severity Reaction Status Date / Time aspirin Allergy Rash Verified 02/22/24 10:54 povidone-iodine Allergy Rash Verified 02/22/24 10:54 [From Betadine] Exam Narrative Exam Narrative: Rahul Maldonado MD personally performed the services described in this documentation, as scribed by Matt Hein RN in my presence and it is both accurate and complete. Matt Maldonado RN, am scribing for, and in the presence of, Dr. Rahul Steen and in the presence of the patient. Constitutional Documenting provider has reviewed patient's vital signs: yes Common normals: oriented x3 Cardio Peripheral pulses: dorsalis pedis pulses present Extremity Common normals: normal capillary refill General: edema Right lower extremity: lower leg Right lower leg: inspection and palpation Left lower extremity: lower leg Left lower leg: inspection (Mild bruising medial thigh) and palpation Neuro Common normals: oriented x3 Assessment and Plan Assessment and Plan (1) Pain due to varicose veins of both lower extremities: Plan Patient to return for sclerotherapy Rahul Maldonado MD personally performed the services described in this documentation, as scribed by Matt Hein RN in my presence and it is both accurate and complete. Matt Maldonado RN, am scribing for, and in the presence of, Dr. Rahul Steen and in the presence of the patient.. Procedures Procedure Instructions Procedures sclerotherapy: Risks and benefits of the procedure were discussed at length and informed written consent was obtained.? Time-out procedure was performed and the correct patient and procedure were confirmed.? Staff present during time-out: Matt Hein RN and Rahul Steen MD.? Patient prepped and procedure performed in usual sterile fashion. Injections performed by Dr. Steen and Matt Hein RN Sclerosing Agent:?? 4cc 0.5% Polidocanol Site Injected: Number of Injections: Anesthesia: Supercooled air The patient tolerated the procedure well without complication.? Hemostasis was obtained and thigh-high compression stocking was applied by patient.? Instructed patient to wear stocking for at least 96 hours and sleep with it and only remove for showering.? Will wear stocking for 2 weeks.? The patient verbalizes understanding and states they will comply.? Patient was given post-procedure instructions. Patient was discharged in good condition.? Scheduled to undergo additional injection sclerotherapy on
--- NOTE | 2024-03-29 14:08 | W.VEIN ---
Discharge Plan Discharge Disposition: Home, Self-Care Discharge Medications: No Action amitriptyline .ROUTE citalopram [Celexa] .ROUTE Print Language: Kinyarwanda
--- NOTE | 2024-04-17 09:03 | V.VEINS.HP ---
Vital Signs 04/18/24 13:46 04/18/24 13:47 Height 5 ft 4 in Weight 64.41 kg BP 124/60 BP Location Right Brachial BP Position Sitting BP Cuff Size Adult BP Source Manual Cuff Respiration 16 Pulse 90 Pulse Source Monitor Pulse Oximetry (%) 95 Oxygen Delivery Method Room Air Comment The patient's blood pressure is elevated. Varicose Veins Patient in today for sclerotherapy Varun Maldonado MD personally performed the services described in this documentation, as scribed by Matt Hein RN in my presence and it is both accurate and complete. IMatt RN, am scribing for, and in the presence of, Dr. Varun Harper and in the presence of the patient. knee: bilateral (patient c/o varicose veins bilateral legs), calf: bilateral, ankle: bilateral and anderson: bilateral aching, dull and tender 3 20 years Worsened in recent months: Yes standing elevating extremities, compression stockings and exercise Reports muscle spasms of leg, heaviness, limb pain and edema History of lower extremity trauma: No Superficial thrombophlebitis: No Family history of varicose veins: yes Has patient had previous lower extremity venous surgery: Yes Patient has previously received the following treatment(s) for lower extremity varicose veins: Reports phlebectomy and sclerotherapy Does patient have a history of : yes Does patient intend to have future pregnancies: no Has patient had lower extremity venous scan with relux testing: Yes Support hose used: Yes Problems walking or doing physical activity: Yes How does it affect you: often had to stop and elevate legs/feet Do you walk much: Yes Do you stand much: Yes Review of Systems ROS Narrative Varun Maldonado MD personally performed the services described in this documentation, as scribed by Matt Hein RN in my presence and it is both accurate and complete. Matt Maldonado RN, am scribing for, and in the presence of, Dr. Varun Harper and in the presence of the patient. Status of ROS 10 or more systems reviewed and unremarkable except as noted in history and below Cardiovascular Reports: edema Integumentary/Breast Reports: non-healing lesion and changes in skin color Neurological Reports: weakness in extremities Hematologic/Lymphatic Reports: easy bruising and easy bleeding [facility] Medical History (Updated 02/22/24 @ 08:34 by Matt Hein) Fibromyalgia ?M79.7 - Fibromyalgia (ICD-10) Phlebitis and thrombophlebitis of superficial vessels of right lower extremity ?I80.01 - Phlebitis and thrombophlebitis of superficial vessels of right lower extremity (ICD-10) Phlebitis and thrombophlebitis of superficial vessels of left lower extremity ?I80.02 - Phlebitis and thrombophlebitis of superficial vessels of left lower extremity (ICD-10) Pain due to varicose veins of both lower extremities ?I83.813 - Varicose veins of bilateral lower extremities with pain (ICD-10) Surgical History (Updated 04/18/24 @ 13:48 by Matt Hein) S/P sclerotherapy of varicose veins ?Z98.890 - Other specified postprocedural states (ICD-10) ?Z86.79 - Personal history of other diseases of the circulatory system (ICD-10) H/O: hysterectomy ?Z90.710 - Acquired absence of both cervix and uterus (ICD-10) Family History (Updated 02/22/24 @ 08:35 by Matt Hein) Other Family history of cancer Family history of stroke Varicose veins of bilateral lower extremities with pain Social History (Updated 02/22/24 @ 08:37 by Matt Hein) Within the past year, how often did you have a drink containing alcohol: 2-4 times a month Smoking status: Never smoker Non-prescribed substance use: denies use Meds Home Medications and Allergies Home Medications ?Medication ?Instructions ?Recorded ?Confirmed ?Type amitriptyline .ROUTE 02/22/24 History citalopram .ROUTE 02/22/24 History Allergies Allergy/AdvReac Type Severity Reaction Status Date / Time aspirin Allergy Rash Verified 02/22/24 10:54 povidone-iodine Allergy Rash Verified 02/22/24 10:54 [From Betadine] Exam Narrative Exam Narrative: IVarun MD personally performed the services described in this documentation, as scribed by Matt Hein RN in my presence and it is both accurate and complete. IMatt RN, am scribing for, and in the presence of, Dr. Varun Harper and in the presence of the patient. Constitutional Documenting provider has reviewed patient's vital signs: yes Common normals: oriented x3 Cardio Peripheral pulses: dorsalis pedis pulses present Extremity Common normals: normal capillary refill General: edema Right lower extremity: lower leg Right lower leg: inspection and palpation Left lower extremity: lower leg Left lower leg: inspection (Mild bruising medial thigh) and palpation Neuro Common normals: oriented x3 Assessment and Plan Assessment and Plan (1) Pain due to varicose veins of both lower extremities: Plan Patient to return for sclerotherapy Varun Maldonado MD personally performed the services described in this documentation, as scribed by Matt Hein RN in my presence and it is both accurate and complete. IMatt RN, am scribing for, and in the presence of, Dr. Varun Harper and in the presence of the patient. Procedures Procedure Instructions Procedures sclerotherapy: Risks and benefits of the procedure were discussed at length and informed written consent was obtained.? Time-out procedure was performed and the correct patient and procedure were confirmed.? Staff present during time-out: Matt Hein RN and Varun Harper MD.? Patient prepped and procedure performed in usual sterile fashion. Injections performed by and Matt Hein RN Sclerosing Agent:?? 4cc 0.5% Polidocanol Site Injected: right leg Number of Injections: 26 Anesthesia: Supercooled air The patient tolerated the procedure well without complication.? Hemostasis was obtained and thigh-high compression stocking was applied by patient.? Instructed patient to wear stocking for at least 96 hours and sleep with it and only remove for showering.? Will wear stocking for 2 weeks.? The patient verbalizes understanding and states they will comply.? Patient was given post-procedure instructions. Patient was discharged in good condition.? Scheduled to undergo additional injection sclerotherapy on 04/26/2024. Varun Maldonado MD personally performed the services described in this documentation, as scribed by Matt Hein RN in my presence and it is both accurate and complete. Matt Maldonado RN, am scribing for, and in the presence of, Dr. Varun Harper and in the presence of the patient.
--- NOTE | 2024-04-17 09:09 | W.VEIN ---
Discharge Plan Discharge Disposition: Home, Self-Care Outpatient Diagnostics: VC INJ Sclerosing SOLMULT Vein (Routine) Timeframe: 2 Weeks Facility: [facility] - Location: Vein Center Ordered By: Varun Harper Follow Up Appointments: 04/26/2024 Plan of Treatment: further sclerotherapy Patient Instructions: Polidocanol (By injection) Print Language: Bel[place]ian Discharge Date/Time: 04/18/24 13:47
--- NOTE | 2024-04-17 09:10 | W.VEIN ---
Discharge Plan Discharge Disposition: Home, Self-Care Outpatient Diagnostics: VC INJ Sclerosing SOLMULT Vein (Routine) Timeframe: 2 Weeks Facility: [facility] - Location: Vein Center Ordered By: Varun Harper Follow Up Appointments: 04/26/2024 Plan of Treatment: further sclerotherapy Patient Instructions: Polidocanol (By injection) Print Language: Greek Discharge Date/Time: 04/18/24 13:47
--- NOTE | 2024-04-18 12:46 | VEIN_ITS ---
[address] [address] Patient Name: DIANA MEYER MRN: [id number] date: 1950 Sex: F Assigned Patient Location: [facility] Current Patient Location: Accession/Order Number: [id number] Exam Date: 04/18/2024 12:46 Report Date: 04/18/2024 15:01 At the request of: ALEX LYNCH Procedure: VC INJ Sclerosing SOLMULT Vein EXAMINATION: VC INJ Sclerosing SOLMULT Vein HISTORY: I83.813 - Varicose veins of bilateral lower extremities w... COMPARISON: No relevant comparison available. TECHNIQUE: The risks and benefits of the procedure were explained at length to the patient and informed written consent was obtained. Matt Hein was present and assisted. The procedure was performed under sterile technique. The patient's leg was wrapped with Coban and postprocedural verbal and written instructions provided. SCLEROSANT: 4 cc, 0.5% polidocanol VEIN(S) INJECTED: 24 veins in the left leg VISUALIZATION: Ultrasound was not used to visualize the sclerosant ANESTHESIA: Supercooled air COMPLICATIONS: None VEIN/VC INJ Sclerosing SOLMULT Vein IMPRESSION: Technically successful sclerotherapy as described Electronically authenticated by: ALEX LYNCH Date: 04/18/2024 15:01
--- OUTSIDE RECORDS SUMMARY | 2024-04-18 12:56 | XMS_ITS | CCD ---
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 Name Role Phone Twan Barrera Primary Care Physician Unavail able Twan Barrera Unavailable Unavailable ROSALBA Henderson Referring Provider [phone] MAGDALENA Andrews Attending Provider MD Caterina Delgado Primary Care Provider [phone] Mari Whitney MD Attending Unava ilable Allyssa Currie Unavailable TAYLER CLARK Attending Unavailable Caterina Delgado Primary Care Unavailable Valencia Henderson Referring Unavailable Melissa Andrews Attending Unavailab le Melissa Andrews Admitting Unavailab le Erickson Reeves MD Primary Care Provider ANNABELLE REHMAN Referring Unavailable LEANDRO, MUHAMID M Primary Care Unavailable ANNABELLE REHMAN Referring Unavailable LEANDRO, MUHAMID M Primary Care Unavailable LEANDRO, MUHAMID M Referring Unavailable LEANDRO, MUHAMID M Primary Care Unavailable MONTEZ PANDYA Referring Unavailable LENADRO, MUHAMID M Primary Care Unavailable MAHESH YOUNG Referring Unavailable LEANDRO, MUHAMID M Primary Care Unavailable LEANDRO, MUHAMID M Attending Unavailable LEANDRO, MUHAMID M Referring Unavailable LEANDRO, MUHAMID M Primary Care Unavailable MAHESH YOUNG Attending Unavailable LEANDRO, MUHAMID M Referring Unavailable LEANDRO, MUHAMID M Primary Care Unavailable LEANDRO, MUHAMID M Referring Unavailable LEANDRO, MUHAMID M Primary Care Unavailable LEANDRO, MUHAMID M Attending Unavailable LEANDRO, MUHAMID M Referring Unavailable LEANDRO, MUHAMID M Primary Care Unavailable Allergies Allergy Classification Reported Allergen(s) Allergy Type Date of Onset Reaction(s) Facility Mold (2 sources) Mold Substance Allergy [email or web address] (14 sources) Mold Allergy to substance (disorder) [facility] (16 sources) Grasses Allergy to substance (disorder) [facility] (16 sources) Wool Alcohol Allergy to substance (disorder) [facility] (16 sources) Other Allergy to substance (disorder) [email or web address] (4 sources) Acetaminophen; Translations: [acetaminophen] Drug Allergy 2 Unknown Reaction [facility] (4 sources) Amoxicillin; Translations: [amoxicillin] Drug Allergy 2 Headache [facility] (4 sources) Ciprofloxacin; Translations: [ciprofloxacin] Drug Allergy 2 Unknown Reaction [facility] (4 sources) Escitalopram; Translations: [escitalopram] Drug Allergy 2 Dizziness [facility] (4 sources) Esomeprazole; Translations: [esomeprazole] Drug Allergy 2 Swelling [facility] (4 sources) HYDROcodone; Translations: [hydrocodone] Drug Allergy 2 Itching [facility] (4 sources) Mannitol; Translations: [mannitol] Drug Allergy 2 Muscle Pain [facility] (4 sources) oxyCODONE; Translations: [oxycodone] Drug Allergy 2 Unknown Reaction [facility] (4 sources) pregabalin; Translations: [pregabalin] Drug Allergy 2 Dizziness [facility] (4 sources) Pseudoephedrine ; Translations: [pseudoephedrin e] Drug Allergy 2 Itching [facility] (4 sources) Sertraline; Translations: [sertraline] Drug Allergy 2 Vomiting [facility] (4 sources) zoledronic acid; Translations: [zoledronic acid] Drug Allergy 2 Muscle Pain [facility] (4 sources) water for injection,steri le; Translations: [water for injection,steri le] Propensity to adverse reactions 2 Muscle Pain [facility] (1 source) No Known Medication Allergies; Translations: [No Known Medication Allergies] Propensity to adverse reactions to drug (disorder) [facility] (7 sources) Hypochlorite; Translations: [BLEACH (SODIUM HYPOCHLORITE)] Drug Allergy 8 [facility] (7 sources) Iodine; Translations: [IODINE] Drug Allergy 2 [facility] (7 sources) Soap; Translations: [SOAP] Propensity to adverse reactions to drug 8 Rash [facility] (7 sources) Wool; Translations: [WOOL] Propensity to adverse reactions to drug 8 Itching [facility] Medications Current Medications Medication Drug Class(es) Dates Sig (Normalized) Sig (Original) [id number] 200 actuat albuterol 0.09 mg/actuat metered dose inhaler (1 source) beta2-Adrenergic Agonist Start: 03-06-2023 take 2 puff(s) by inhalation four times daily as needed Albuterol Sulfate HFA 108 (90 Base) MCG/ACT 2 puffs Inhalation 4 times a day prn Mar, Active amitriptyline hydrochloride 10 mg oral tablet (20 sources) Tricyclic Antidepressant Start: 06-23-2022 End: 10-26-2023 amitriptyline (ELAVIL) 10 mg tablet Indications: Fibromyalgia Take 1 tablet (10 mg total) by mouth nightly. Taking 1/2 tab 90 tablet 2 10/26/2023 Active take 1 tablet by dante th once daily at bedtime amitriptyline 10 mg oral tablet take 1 tablet (10 mg) by oral route once daily at bedtime azithromycin 250 mg oral tablet (1 source) Macrolide Antimicrobial Start: 03-06-2023 Azithromycin 250 MG 2 tablet on the first day, then 1 tablet daily for 4 days Orally Once a day for 5 day(s) Mar, Active busPIRone hydrochloride 10 mg oral tablet (3 sources) Start: 07-13-2023 take 1 tablet by mouth twice daily as needed for anxiety busPIRone (BUSPAR) 10 mg tablet Indications: Anxiety attack Take 1 tablet (10 mg total) by mouth 2 (two) times a day as needed (anxiety). 60 tablet 2 07/13/2023 Active citalopram 20 mg oral tablet (20 sources) Serotonin Reuptake Inhibitor Start: 06-23-2022 take 1 tablet by mouth in the morning citalopram (CeleXA) 20 mg tablet Indications: Anxiety attack , Fibromyalgia Take 1 tablet (20 mg total) by mouth in the morning. 90 tablet 2 07/13/2023 Active take 1 tablet by mouth once lisa y Celexa 10 mg oral tablet take 1 tablet (10 mg) by oral route once daily ergocalciferol 1.25 mg oral capsule (1 source) Provitamin D2 Compound take 1 capsule by mouth every week Vitamin D (Ergocalciferol) 1.25 MG (76723 UT) 1 capsule Orally once a week Active estradiol 0.1 mg/ml vaginal cream (3 sources) Estrogen Start: estradioL (ESTRACE) 0.01 % (0.1 mg/gram) vaginal cream Apply a small dab every other night around urethra 42.5 g 3 06/22/2023 Active fluticasone propionate 0.05 mg/actuat metered dose nasal spray (7 sources) Corticosteroid Start: 023 take 2 spray(s) nasal route in the morning fluticasone propionate (FLONASE) 50 mcg/actuation nasal spray Indications: Allergic rhinitis due to pollen, unspecified seasonality Administer 2 sprays into each nostril in the morning. 18.2 mL 5 10/22/2022 Active Start: 06-23-2022 take 1 spray(s) nasa l route once daily Fluticasone Propionate (Flonase) 50 mcg/actuation [place],Suspension Active 1 SPRAY INTRANASAL Daily June 23, 2022 12:00am administer into each nostril take 1 spray(s) nasa l route once daily Flonase Allergy Relief 50 MCG/ACT 1 spray in each nostril Nasally Once a day Active guaiFENesin 400 mg oral tablet (1 source) take 1 tablet by mouth every four hours guaiFENesin 400 MG 1 tablet as needed Orally every 4 hrs Active lidocaine hydrochloride 40 mg/ml mucous membrane topical solution (3 sources) Antiarrhythmic, Amide Local Anesthetic Start: lidocaine (XYLOCAINE) 4 % (40 mg/mL) external solution apply topically to affected area if needed for pain 50 mL 0 02/19/2023 Active omeprazole 20 mg delayed release oral capsule (20 sources) Proton Pump Inhibitor Start: 022 End: 024 take 1 capsule by mouth once daily before breakfast omeprazole (PriLOSEC) 20 mg capsule Indications: Gastroesophageal reflux disease without esophagitis Take 1 capsule (20 mg total) by mouth every morning before breakfast. 90 capsule 2 10/26/2023 Active take 1 capsule by mo [facility] once daily before mealtime omeprazole 20 mg oral capsule,delayed release(DR/EC) take 1 capsule (20 mg) by oral route once daily before a meal predniSONE 20 mg oral tablet (1 source) Start: 03-06-2023 take 1 tablet by mouth every twelve hours predniSONE 20 MG 1 tablet Orally bid for 5 day(s) Mar, Active triamcinolone acetonide 1 mg/ml topical cream (3 sources) Corticosteroid triamcinolone (KENALOG) 0.1 % cream Apply 1 Application topically in the morning and 1 Application before bedtime. 0 Active Completed/Discontinued Medications Medication Drug Class(es) Dates Sig (Normalized) Sig (Original) ALPRAZolam 0.5 mg oral tablet (2 sources) Benzodiazepine Start: 04-19-2023 End: 10-26-2023 take 1 tablet by mouth twice daily as needed for anxiety ALPRAZolam (XANAX) 0.5 mg tablet Indications: Anxiety attack Take 1 tablet (0.5 mg total) by mouth 2 (two) times a day as needed for anxiety. 6 tablet 0 04/19/2023 10/26/2023 Discontinued calcium carbonate 1250 mg / cholecalciferol 200 unt oral tablet (2 sources) Vitamin D Start: 02-03-2023 End: 10-26-2023 take 1 tablet by mouth in the morning, then take 1 tablet by mouth once at mealtime calcium carbonate-vitamin D3 (OYSTER SHELL CALCIUM-VIT D3) 500 mg(1,250mg) -200 units per tablet Take 1 tablet by mouth in the morning and 1 tablet in the evening. Take with meals. 180 tablet 3 02/03/2023 10/26/2023 Discontinued fluconazole 150 mg oral tablet (5 sources) Azole Antifungal Start: 04-08-2021 take 1 tablet by mouth once fluconazole oral tablet 150 mg 04/08/2021 take 1 tablet (150 mg) by oral route once tretinoin 0.25 mg/ml topical cream (10 sources) Retinoid Start: 02-11-2022 apply 30 g topically once daily at bedtime tretinoin 0.025 % topical cream 02/11/2022 apply to the affected area(s) by topical route once daily at bedtime. Disp: 30 grams Start: 05-13-2020 apply 30 g topically once daily at bedtime tretinoin 0.025 % topical cream 05/13/2020 apply to the affected area(s) by topical route once daily at bedtime. Disp: 30 grams Problems Active Problems Problem Classification Problem Date Documented Date Episodic/Chronic Anxiety disorders (1 source) Anxiety Onset: 10-26-2023 Chronic Chronic obstructive pulmonary disease and bronchiectasis (1 source) Bronchitis, not specified as acute or chronic Episodic Diseases of white blood cells (3 sources) Leukopenia; Translations: [Decreased white blood cell count, unspecified] 07-06-2022 Chronic Disorders of lipid metabolism (6 sources) Dyslipidemia; Translations: [Hyperlipidemia, unspecified] Onset: 11-04-2022 11-04-2022 Chronic Diverticulosis and diverticulitis (3 sources) Diverticular disease; Translations: [Diverticulosis of intestine, part unspecified, without perforation or abscess without bleeding] Onset: 11-04-2022 11-04-2022 Chronic Esophageal disorders (5 sources) Gastroesophageal reflux disease; Translations: [Gastro-esophageal reflux disease without esophagitis] Onset: 11-04-2022 11-04-2022 Chronic Genitourinary symptoms and ill-defined conditions (10 sources) Dysuria; Translations: [Dysuria] Onset: 07-01-2022 07-06-2022 Episodic Menopausal disorders (3 sources) Postmenopausal atrophic vaginitis; Translations: [Postmenopausal bleeding] Onset: 01-25-2024 Chronic Mood disorders (3 sources) Depressive disorder; Translations: [Depression] Onset: 11-04-2022 11-04-2022 Chronic Nonmalignant breast conditions (3 sources) Fibrocystic disease of breast; Translations: [Diffuse cystic mastopathy of unspecified breast] Onset: 11-04-2022 11-04-2022 Chronic Nutritional deficiencies (6 sources) Moderate protein energy malnutrition; Translations: [Moderate protein-calorie malnutrition] Onset: 10-26-2023 10-26-2023 Chronic Other circulatory disease (1 source) Spider nevus; Translations: [Nevus, non-neoplastic] 10-26-2023 Episodic Other screening for suspected conditions (not mental disorders or infectious disease) (17 sources) Screening for malignant neoplasms of skin; Translations: [Encounter for screening for malignant neoplasm of skin] Onset: 10-30-2016 Episodic Other skin disorders (7 sources) Other seborrheic keratosis Onset: 10-30-2016 Episodic Other skin disorders (12 sources) Other dyschromia Onset: 10-30-2016 Episodic Other skin disorders (1 source) Other specified hypertrophic and atrophic conditions of skin Onset: 03-29-2020 Episodic Residual codes; unclassified (9 sources) Unspecified elective surgery for purposes other than remedying health states Onset: 12-12-2018 Episodic Residual codes; unclassified (20 sources) Encounter for procedure for purposes other than remedying health state, unspecified Onset: 12-12-2018 Episodic Residual codes; unclassified (1 source) Current drinker; Translations: [Other specified health status] 10-26-2023 Episodic Unclassified (1 source) Decreased white blood cell count, unspecified; Translations: [Decreased white blood cell count, unspecified] Onset: 07-09-2022 Unclassified (1 source) Annual Exam Onset: 02-16-2024 Unclassified (1 source) Breast Problem Onset: 09-01-2023 Past or Other Problems Problem Classification Problem Date Documented Date Episodic/Chronic Esophageal disorders (3 sources) Esophagitis; Translations: [Esophagitis] Onset: 3 11-04-2022 Episodic Gastritis and duodenitis (3 sources) Gastritis; Translations: [Gastritis, unspecified, without bleeding] Onset: 3 11-04-2022 Episodic Mood disorders (3 sources) Mood disorders Onset: 3 Resolved: 4 04-19-2023 Mycoses (4 sources) Tinea unguium Onset: 1 Episodic Nonmalignant breast conditions (3 sources) Mastodynia; Translations: [Mastodynia] Onset: 4 09-01-2023 Episodic Other and unspecified benign neoplasm (6 sources) Benign neoplasm of skin, site unspecified Onset: 7 Episodic Other and unspecified benign neoplasm (10 sources) Melanocytic nevi, unspecified Onset: 7 Episodic Other bone disease and musculoskeletal deformities (3 sources) Osteopenia; Translations: [Other specified disorders of bone density and structure, unspecified site] Onset: 3 11-04-2022 Episodic Other circulatory disease (6 sources) Nevus, non-neoplastic Onset: 7 Episodic Other circulatory disease (11 sources) Nevus, non-neoplastic; Translations: [Nevus, non-neoplastic] Onset: 7 Episodic Other connective tissue disease (3 sources) Ganglion cyst of right hand; Translations: [Ganglion, right hand] Onset: 2 06-15-2022 Episodic Other connective tissue disease (4 sources) Fibromyalgia; Translations: [Fibromyalgia] Onset: 3 11-04-2022 Episodic Other connective tissue disease (2 sources) Fibromyalgia; Translations: [Fibromyalgia] Onset: 3 Episodic Other skin disorders (10 sources) Other seborrheic keratosis Onset: 7 Episodic Other skin disorders (20 sources) Other melanin hyperpigmentation Onset: 7 Episodic Other skin disorders (14 sources) Other atrophic disorders of skin Onset: 1 Episodic Other skin disorders (4 sources) Actinic keratosis Onset: 1 Episodic Residual codes; unclassified (10 sources) Other plastic surgery for unacceptable cosmetic appearance Onset: 7 Episodic Residual codes; unclassified (20 sources) Encounter for cosmetic surgery Onset: 7 Episodic Residual codes; unclassified (2 sources) Other specified health status; Translations: [Other specified health status] Onset: 4 Episodic Varicose veins of lower extremity (2 sources) Ruptured varicose veins; Translations: [Varicose veins of unspecified lower extremity with other complications] Onset: 4 10-26-2023 Episodic Results Test Name Value Interpretation Reference Range Facility URINALYSISon 01-25-2024 Bilirubin Ql (U) Negative Normal NEG [facility] Comment on above: Performed By: #### U A #### [facility] ([id number]) [address], [address] [place] [address] BLOOD/HGB Negative Normal NEG [facility] Comment on above: Performed By: #### U A #### [facility] ([id number]) [address], [address] [place] [address] Color (U) YELLOW Normal YELLOW [facility] Comment on above: Performed By: #### U A #### [facility] ([id number]) [address], [address] [place] [address] Glucose Ql (U) Negative Normal NEG [facility] Comment on above: Performed By: #### U A #### [facility] ([id number]) [address], [address] [place] [address] Ketones Ql (U) Trace Abnormal NEG [facility] Comment on above: Performed By: #### U A #### [facility] ([id number]) [address], [address] [place] [address] Leukocyte esterase Test strip Ql (U) Small Abnormal NEG [facility] Comment on above: Performed By: #### U A #### [facility] ([id number]) [address], [address] [place] [address] MUCOUS PRESENT Abnormal NONE [facility] Comment on above: Performed By: #### U A #### [facility] ([id number]) [address], [address] [place] [address] Nitrite Ql (U) Negative Normal NEG [facility] Comment on above: Performed By: #### U A #### [facility] ([id number]) [address], [address] [place] [address] pH (U) 6.5 [pH] Normal 5.0-8.5 [facility] Comment on above: Performed By: #### U A #### [facility] ([id number]) [address] [place] [address] [address] [place] [address] Protein Ql (U) Negative Normal NEG [facility] Comment on above: Performed By: #### U A #### [facility] ([id number]) [address] [place] [address], [address] [place] [address] R.B.CELLS 1 /hpf Normal 0-5 [facility] Comment on above: Performed By: #### U A #### [facility] ([id number]) [address] [place] [address] [address] [place] [address] Specific gravity (U) [Rel density] 1.016 Normal 1.003-1.035 [facility] Comment on above: Performed By: #### U A #### [facility] ([id number]) [address] [place] [address], [address] [place] [address] SQUAMOUS EPITHELIUM 1 /hpf Normal 0-5 [facility] Comment on above: Performed By: #### U A #### [facility] ([id number]) [address] [place] [address], [address] [place] [address] TURBIDITY CLEAR Normal CLEAR [facility] Comment on above: Performed By: #### U A #### [facility] ([id number]) [address] [place] [address], [address] [place] [address] Urobilinogen (U) [Mass/Vol] mg/dL Normal <1.1 [facility] Comment on above: Performed By: #### U A #### [facility] ([id number]) [address] [place] [address], [address] [place] [address] W.B.CELLS 2 /hpf Normal 0-5 [facility] Comment on above: Performed By: #### U A #### [facility] ([id number]) [facility] [address], [address] [place] [address] URINE CULTUREon 01-25-2024 Bacteria identified Cx Nom (U) CULTURE RESULTS 10-50,000 ORGANISMS/mL NORMAL UROGENITAL BRYANT Normal [facility] Comment on above: Performed By: #### 6 30-4 #### [facility] ([id number]) [address], [address] [place] [address] VAGINITIS PANEL PCRon 2023 VAGINITIS PANEL PCR BACT. VAGINOSIS DNA Not detected (qualifier value) Qualitative results are reported based on detection and quantitation of targeted organism markers which include: Lactobacillus spp. (L. crispatus and L. jensenii), Gardnerella vaginalis, Atopobium vaginae, Bacterial Vaginosis Associated Bacteria-2 (BVAB-2) and Megasphaera-1 LISA SPECIES DNA Not detected (qualifier value) Lisa species not detected include: C. albicans, C. tropicalis, C. parapsilosis or C. dubliniensis LISA KRUSEI DNA Not detected (qualifier value) No Lisa krusei detected LISA GLABRATA DNA Not detected (qualifier value) No Lisa glabrata detected TRICHOMONAS VAG DNA Not detected (qualifier value) No Trichomonas vaginalis detected NOTE BD MAX Vaginal Panel has not been evaluated for patients under 18 years old. Results for these patients should be reviewed and assessed in accordance with clinical presentation to determine patient diagnosis. Normal [facility] Comment on above: Performed By: #### V PPCR #### [facility] ([id number]) [address], [address] [place] [address] CBC AND AUTO DIFFon 11-15-19 24 ABSOLUTE BASOPHIL 0.1 X10E9/L Normal 0.0-0.2 [facility] Comment on above: Performed By: #### C BCA, CMP, 67360-0, 54428-2, TSHR, 67234-9, 2132-9, 2284-8 #### [facility] ([id number]) [address] [place] [address] ABSOLUTE NEUTROPHIL 5.6 X10E9/L Normal 1.5-6.6 [facility] Comment on above: Performed By: #### C BCA, CMP, 80051-4, 46170-9, TSHR, 00260-0, 9, 2283-8 #### [facility] ([id number]) [address], [address] [place] [address] Basophils/100 WBC (Bld) 0.8 % Normal [facility] Comment on above: Performed By: #### C BCA, CMP, 71421-0, 91595-6, TSHR, 58552-8, 9, 2283-8 #### [facility] ([id number]) [address], [address] [place] [address] Eosinophils (Bld) [#/Vol] 0.1 10*3/uL Normal 0.0-0.4 [facility] Comment on above: Performed By: #### C BCA, CMP, 65650-0, 27123-1, TSHR, 43768-1, 9, 2283- #### [facility] ([id number]) [address], [address] [place] [address] Eosinophils/100 WBC (Bld) 1.9 % Normal [facility] Comment on above: Performed By: #### C BCA, CMP, 87861-3, 57908-7, TSHR, 03449-9, 2132-04, 2284-03 #### [facility] ([id number]) [address], [address] [place] [address] Erythrocyte distribution width (RBC) [Ratio] 13.3 % Normal 11.5-15.0 [facility] Comment on above: Performed By: #### C BCA, CMP, 36817-6, 97933-5, TSHR, 01054-6, 9, 2283- #### [facility] ([id number]) [address], [address] [place] [address] Hematocrit (Bld) [Volume fraction] 41.9 % Normal 35-47 [facility] Comment on above: Performed By: #### C BCA, CMP, 48907-5, 96103-4, TSHR, 84669-6, 2132-04, 2284-03 #### [facility] ([id number]) [address], [facility] [address] [place] [address] Hemoglobin (Bld) [Mass/Vol] 14.2 g/dL Normal 11.7-15.5 [facility] Comment on above: Performed By: #### C BCA, CMP, 50087-2, 24772-5, TSHR, 59763-0, 2132-04, 2284-03 #### [facility] ([id number]) [address], [address] [address] Lymphocytes (Bld) [#/Vol] 1.0 10*3/uL Normal 1.0-3.5 [facility] Comment on above: Performed By: #### C BCA, CMP, 11836-7, 07213-5, TSHR, 38971-1, 2132-04, 2284-03 #### [facility] ([id number]) [address], [address] [address] Lymphocytes/100 WBC (Bld) 13.6 % Normal [facility] Comment on above: Performed By: #### C BCA, CMP, 64106-2, 42744-1, TSHR, 32204-5, 2132-04, 2284-03 #### [facility] ([id number]) [address] [address] [place] [address] MCH (RBC) [Entitic mass] 31.1 pg Normal 27-34 [facility] Comment on above: Performed By: #### C BCA, CMP, 20533-5, 23091-1, TSHR, 01297-7, 2132-04, 2283- #### [facility] ([id number]) [address], [address] [place] [address] MCHC (RBC) [Mass/Vol] 33.8 g/dL Normal 32-36 [facility] Comment on above: Performed By: #### C BCA, CMP, 65772-8, 20546-5, TSHR, 62096-8, 2131-9, 2283-8 #### [facility] ([id number]) [address], [address] [place] [address] MCV (RBC) [Entitic vol] 92 fL Normal 80-100 [facility] Comment on above: Performed By: #### C BCA, CMP, 97136-7, 66293-6, TSHR, 25570-2, 2132-04, 2284-03 #### [facility] ([id number]) [address], [address] [place] [address] Monocytes (Bld) [#/Vol] 0.5 10*3/uL Normal 0-0.9 [facility] Comment on above: Performed By: #### C BCA, CMP, 83055-7, 04779-6, TSHR, 79379-8, 2132-04, 2283- #### [facility] ([id number]) [address], [address] [place] [address] Monocytes/100 WBC (Bld) 7.3 % Normal [facility] Comment on above: Performed By: #### C BCA, CMP, 79491-8, 27466-3, TSHR, 78231-1, 9, 2283- #### [facility] ([id number]) [address], [address] [place] [address] Neutrophils/100 WBC (Bld) 76.4 % Normal [facility] Comment on above: Performed By: #### C BCA, CMP, 16201-6, 88243-7, TSHR, 43143-4, 2132-04, 2283- #### [facility] ([id number]) [address], [address] [place] [address] Platelet mean volume (Bld) [Entitic vol] 7.6 fL Normal 7-12 [facility] Comment on above: Performed By: #### C BCA, CMP, 00283-2, 26849-4, TSHR, 51817-1, 2131-9, 2283-8 #### [facility] ([id number]) [address], [address] [place] [address] Platelets (Bld) [#/Vol] 264 10*3/uL Normal 150-450 [facility] Comment on above: Performed By: #### C BCA, CMP, 65573-2, 32107-2, TSHR, 20646-7, 2131-9, 2283-8 #### [facility] ([id number]) [address], [address] [place] [address] RBC COUNT 4.55 X10E12/L Normal 3.80-5.20 [facility] Comment on above: Performed By: #### C BCA, CMP, 90678-4, 87895-6, TSHR, 15989-7, 9, 2283-8 #### [facility] ([id number]) [address], [address] [place] [address] WBC (Bld) [#/Vol] 7.3 10*3/uL Normal 4.0-11.0 [facility] Comment on above: Performed By: #### C BCA, CMP, 07465-6, 43310-5, TSHR, 87454-1, 2131-9, 2283-8 #### [facility] ([id number]) [address], [address] [place] [address] COMPREHENSIVE METABOLIC PANE Deion 11-15-2023 Albumin [Mass/Vol] 4.3 g/dL Normal 3.2-5.3 [facility] Comment on above: Performed By: #### C BCA, CMP, 40682-4, 69619-1, TSHR, 17374-3, 2-9, 2284-8 #### [facility] ([id number]) [address], [address] [place] [address] ALP [Catalytic activity/Vol] 57 U/L Normal 39-130 [facility] Comment on above: Performed By: #### C BCA, CMP, 70986-3, 65678-6, TSHR, 48194-0, 2131-9, 2284-8 #### [facility] ([id number]) [address], [address] [place] [address] ALT [Catalytic activity/Vol] 16 U/L Normal 0-31 [facility] Comment on above: Performed By: #### C BCA, CMP, 15016-1, 68099-6, TSHR, 73833-9, 2131-9, 4-8 #### [facility] ([id number]) [address] [place] [address] Anion gap [Moles/Vol] 9 mmol/L Normal 5-15 [facility] Comment on above: Performed By: #### C BCA, CMP, 93081-1, 21698-5, TSHR, 80076-2, 2131-9, 4-8 #### [facility] ([id number]) [address], [address] [place] [address] AST [Catalytic activity/Vol] 20 U/L Normal 0-41 [facility] Comment on above: Performed By: #### C BCA, CMP, 00654-4, 49879-9, TSHR, 26846-2, 2131-9, 4-8 #### [facility] ([id number]) [address], [address] [place] [address] Bilirubin [Mass/Vol] 0.7 mg/dL Normal 0.3-1.2 [facility] Comment on above: Performed By: #### C BCA, CMP, 76769-6, 41166-4, TSHR, 97523-8, 2131-9, 2284-8 #### [facility] ([id number]) [address] [place] [address] Calcium [Mass/Vol] 9.6 mg/dL Normal 8.5-10.5 [facility] Comment on above: Performed By: #### C BCA, CMP, 58260-3, 84726-0, TSHR, 93238-6, 2131-9, 4-8 #### [facility] ([id number]) [address], [address] [place] [address] Chloride [Moles/Vol] 103 mmol/L Normal 98-109 [facility] Comment on above: Performed By: #### C BCA, CMP, 18668-2, 79540-5, TSHR, 10442-3, 2131-9, 2283-8 #### [facility] ([id number]) [address], [address] [place] [address] CO2 [Moles/Vol] 29 mmol/L Normal 22-32 [facility] Comment on above: Performed By: #### C BCA, CMP, 30269-6, 78161-7, TSHR, 41569-4, 2131-9, 4-8 #### [facility] ([id number]) [address] [place] [address] Creatinine [Mass/Vol] 0.96 mg/dL Normal 0.40-1.00 [facility] Comment on above: Result Comment: METH OD TRACEABLE TO IDMS STANDARD Performed By: #### C BCA, CMP, 27043-1, 22472-0, TSHR, 19336-0, 2131-9, 4-8 #### [facility] ([id number]) [address], [address] [place] [address] GFR/1.73 sq M.predicted among non-blacks MDRD (S/P/Bld) [Vol rate/Area] 63 mL/min/{1.73_m2} Normal >59 [facility] Comment on above: Result Comment: Reported eGFR is based on the CKD-EPI 2020 equation that does not use a race coefficient. Performed By: #### C BCA, CMP, 47513-0, 81242-2, TSHR, 72435-4, 9, 8 #### [facility] ([id number]) [address], [address] [place] [address] Glucose [Mass/Vol] 85 mg/dL Normal 65-99 [facility] Comment on above: Performed By: #### C BCA, CMP, 12694-1, 09624-8, TSHR, 92725-1, 2132-04, 2284-03 #### [facility] ([id number]) [address] [place] [address] Potassium [Moles/Vol] 4.1 mmol/L Normal 3.5-5.0 [facility] Comment on above: Performed By: #### C BCA, CMP, 90169-5, 48425-4, TSHR, 02832-6, 2132-04, 2284-03 #### [facility] ([id number]) [address] [place] [address] Protein [Mass/Vol] 7.0 g/dL Normal 6.0-8.0 [facility] Comment on above: Performed By: #### C BCA, CMP, 87822-4, 53416-0, TSHR, 65757-8, 9, 2284-03 #### [facility] ([id number]) [address], [address] [place] [address] Sodium [Moles/Vol] 141 mmol/L Normal 134-146 [facility] Comment on above: Performed By: #### C BCA, CMP, 06701-2, 15938-4, TSHR, 08862-0, 2132-04, 2284-03 #### [facility] ([id number]) [address], [address] [place] [address] Urea nitrogen [Mass/Vol] 18 mg/dL Normal 5-27 [facility] Comment on above: Performed By: #### C BCA, CMP, 67347-7, 81680-8, TSHR, 21397-4, 9, 2284-03 #### [facility] ([id number]) [address], [address] [place] [address] Folate [Mass/Vol]on 11-15-19 24 FOLIC ACID 10.8 ng/mL Normal >5.8 [facility] Comment on above: Result Comment: NEW REFERENCE RANGE Performed By: #### C BCA, CMP, 46884-9, 10613-4, TSHR, 91810-7, 2132-04, 2284-03 #### [facility] ([id number]) [address], [address] [place] [address] Lipid 1996 panelon 4 Cholesterol [Mass/Vol] 202 mg/dL High 150-200 [facility] Comment on above: Performed By: #### C BCA, CMP, 53050-5, 00836-8, TSHR, 49339-5, 2132-04, 2284-03 #### [facility] ([id number]) [address], [address] [place] [address] Cholesterol in HDL [Mass/Vol] 53 mg/dL Normal >39 [facility] Comment on above: Result Comment: HDL <40 mg/dL - High Risk HDL > or = 40mg/dL- Desirable HDL >60 mg/dL - Negative Risk Performed By: #### C BCA, CMP, 73944-9, 69773-7, TSHR, 23852-4, 2132-04, 2284-8 #### [facility] ([id number]) [address] [place] [address] Cholesterol in LDL [Mass/Vol] 131 mg/dL High <130 [facility] Comment on above: Result Comment: LDL <100 mg/dL - Desirable LDL >160 mg/dL - High Risk Performed By: #### C BCA, CMP, 52253-1, 52639-9, TSHR, 05676-8, 2132-04, 8 #### [facility] ([id number]) [address], [address] [place] [address] Cholesterol in VLDL [Mass/Vol] 18 mg/dL Normal 0-30 [facility] Comment on above: Performed By: #### C BCA, CMP, 07273-4, 15264-9, TSHR, 74588-0, 9, 2283-8 #### [facility] ([id number]) [address], [address] [place] [address] CHOLESTEROL:HDL 3.8 Normal 1.0-5.0 [facility] Comment on above: Performed By: #### C BCA, CMP, 85462-9, 98841-0, TSHR, 69841-7, 9, 2283-8 #### [facility] ([id number]) [address], [address] [place] [address] Triglyceride [Mass/Vol] 90 mg/dL Normal 27-150 [facility] Comment on above: Performed By: #### C BCA, CMP, 23517-8, 74937-8, TSHR, 85973-1, 9, 2283-8 #### [facility] ([id number]) [address], [address] [place] [address] MAGNESIUMon 11-15-2023 Magnesium [Mass/Vol] 2.0 mg/dL Normal 1.8-2.6 [facility] Comment on above: Performed By: #### C BCA, CMP, 61720-5, 59845-8, TSHR, 03630-5, 2132-04, 2283-8 #### [facility] ([id number]) [address] [place] [address] TSH WITH REFLEXon 11-15-2023 TSH 0.97 uIU/mL Normal 0.49-4.67 [facility] Comment on above: Performed By: #### C BCA, CMP, 33843-6, 36125-5, TSHR, 83950-7, 2132-04, 2283-8 #### [facility] ([id number]) [address] [place] [address] VITAMIN B12on 11-15-2023 Cobalamin (Vitamin B12) [Mass/Vol] 329 pg/mL Normal 180-914 [facility] Comment on above: Performed By: #### C BCA, [facility], 10228-3, , TSHR, 96646-5, 2132-04, 2283-8 #### [facility] ([id number]) [address] [place] [address] Vitamin D+Metabolites [Mass/ Vol]on 11-15-2023 VITAMIN D 25 HYD TOT 73.3 ng/mL Normal 30-100 [facility] Comment on above: Result Comment: Vitamin D status 25 [place] Vitamin D Deficiency <20 ng/mL Insufficiency 20-29 ng/mL Sufficiency 30-100 ng/mL Toxicity >100 ng/mL NOTE: A pediatric reference range has not been established by the timber framer helper of this kit. The [place] [employer] recommends a Vitamin D level of = or >20ng/mL in infants and children. Performed By: #### C BCA, CMP, 11401-4, 00492-5, TSHR, 39197-5, 2132-9, 2284-8 #### [facility] ([id number]) [address] [place] [address] MAMM DIAGNOSTIC UNILAT LT W CADon 09-09-2023 MAMM DIAGNOSTIC UNILAT LT W CAD MAMM DIAGNOSTIC UNILAT LT W CAD EXAM: MAMM DIAGNOSTIC UNILAT LT W CAD, 09/09/2023 1:38 PM CLINICAL INDICATIONS: Breast pain, left, diffuse with no focal symptoms. COMPARISON: 03/23/2023, 03/18/2022, 12/05/2020 TECHNIQUE: CC and MLO views of the left breast were performed. Breast tomosynthesis was utilized . CAD was utilized. FINDINGS: There are scattered areas of fibroglandular density. A few calcifications and a biopsy site marker present. There are no suspicious masses, calcifications, or areas of architectural distortions. IMPRESSION: No mammographic evidence of malignancy. BI-RADS: BI-RADS 2 - Benign Recommendation: Routine screening mammogram in 1 year Routine screening mammography recommended. The patient will be due for bilateral screening mammography in March 2024 Patient was given the results before leaving the department. 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 No pap d/t age. No mammogram on file. No colonoscopy on file. No bone density on file. History of Present Illness 72-year-old G2, P2 presents as new patient for annual exam and to establish care. She overall is healthy and well. She has complaints about urethral irritation. Recently saw urology through [facility] states had cystoscopy last month, was told to put estrogen cream on her urethra. She lost the prescription and would like a second opinion. All of her medical care is done through [facility], lives in [place] outside [place]. She is up-to-date with her other medical care, has regular mammograms, does have history of 2 benign breast biopsies. Did have bone density scan, states she took 1 IV dose of a bisphosphonate and thought she was going to . She notes total abdominal hysterectomy bilateral salpingo-oophorecto my done at age 48 secondary to abnormal uterine bleeding from cancer causing allergy shots. She also had a benign enlarged ovarian cyst. 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 She has many allergies, takes vitamin D 93763 oral units every other week. She does get calcium in diet. She tries to maintain a healthy weight. She is sexually active with her boyfriend. Pelvic Pain: No Painful Sex: No Abnormal Vaginal Discharge: No Abnormal Vaginal Bleeding: No Vaginal Dryness: Yes Vaginal Itch: No Vaginal Burning: No Vaginal Odor: No Hot Flashes: No Night Sweats: No Breast Lump: No Breast Pain: No Menstrual Periods: No Reason for No Menstrual Periods: hyst Comments 08/11/22 16:24:00 Annual exam Review of Systems Head Migraines: No Headaches: No Eyes Corrective Lenses: None Blurred vision: None Ears, Nose, Throat Congestion: No Vertigo: No Sore throat: No Nasal drainage: No Cardio Respiratory Peripheral edema: No Heart Irregularity: No Chest Pain: No Shortness of Breath: No Gastrointestinal Bloating: No Reflux/heartburn: No Abdominal Pain: No Change in bowel habits: No Urinary Urinary Incontinence: No Urinary frequency: No Nocturia: No Urgency: No Painful urination: No Musculoskeletal Backpain: No Muscle aches: No Joint pain: No Integumentary Lesions: No Moles: No Acne: No Hair changes: No PsychoSocial Sleep Problems: No Anxiety: Yes Suicidal Ideation: No Homicidal Ideation: No Depression: No Hematologic/Lymphat ic Lymphadenopathy: No Thromboembolism: No Bruising: No Bleeding tendencies: No Endocrine Abnormal weight gain: No Abnormal weight loss: No Fatigue: No Additional Details Pain Present Physical Exam Vitals & Measurements BP: 126/70 HT: 163 cm WT: 65.4 kg WT: 65.4 kg (Dosing) BMI: 24.62 General: Alert and oriented, well nourished, no acute distress. Eye: PERRL, EOMI, normal conjuctiva. HEENT: Normocephalic, normal hearing, moist oral mucosa, no scleral icterus. Neck: Supple, non-tender, no Thyromegaly, no lymphadenopathy. Lungs: Clear to auscultation and percussion, non-labored respiration. Heart: Normal rate, regular rhythm, no murmur, gallop or edema. Abdomen: Soft, non-tender, non-distended, normal bowel sounds, no masses. Musculoskeletal: Normal range of motion and strength, no tenderness or swelling. Skin: Skin is warm, dry and pink, no rashes or lesions. Neurologic: Awake, alert, and oriented X3. Psychiatric: Cooperative, appropriate mood and affect. Breast exam: + few fibrocystic changes noted bilaterally, no masses, tenderness, skin changes or nipple discharge. External Genitalia: atrophic, slightly prolapsed urethral meatus, no lesions, vulvar skin intact. Genitourinary: atrophic vaginal mucosa, no lesions or abnormal discharge, cuff intact without lesions or bleeding. grade 1 cystocele, no rectocele. Bimanual exam: absent uterus. No adnexal tenderness or masses. Additional Vitals BP Position/Location: Sitting Assessment/Plan 1. Encounter for routine gynecological examination Ordered: [address] [facility] New Preventative Visit; 65 years and older 2. Atrophic vaginitis Ordered: [id number] [facility] New Preventative Visit; 65 years and older Orders: estradiol topical, 1 g, VAG, HS (at bedtime), use 1-2 x weekly, # 42.5 g, 3 Refill(s), Pharmacy: [facility] #[id number] Medical Decision Making Chronic conditions NOT treated during this visit that affected my overall medical decision making: [] Treatment plans discussed but not opted for at this time: [] Prescribed medication that requires intensive monitoring for toxicity: [] I have reviewed the patient?s medication list for medication interactions/contra indications and/or for upcoming procedures: [yes or no] Time Spent with the Patient I have personally spent [] minutes on this date, directly related to today's patient visit, including pre and post visit work, for this date of service. Time listed does not include time spent on separately billable services. (more content not included)... Normal [facility] Basophils Auto (Bld) [#/Vol] Ordered By: Melissa Andrews on 07-02-2022 Basophils (Bld) [#/Vol] 0.0 10*3/uL 0.0-0.2 [facility] Basophils/100 WBC Auto (Bld) Ordered By: Melissa Andrews on 07-02-2022 Basophils/100 WBC (Bld) 0.8 % . [facility] Eosinophils Auto (Bld) [#/Vo l]Ordered By: Melissa Andrews on 07-02-2022 Eosinophils (Bld) [#/Vol] 0.1 10*3/uL 0.0-0.45 [facility] Eosinophils/100 WBC Auto (Bl d)Ordered By: Melissa Andrews on 07-02-2022 Eosinophils/100 WBC (Bld) 2.2 % . [facility] Erythrocyte distribution wid th Auto (RBC) [Ratio]Ordered By: Melissa Andrews on 07-02-2022 Erythrocyte distribution width (RBC) [Ratio] 13.3 % 11.9-15.3 [facility] Folate [Mass/volume] in Seru m or PlasmaOrdered By: Melissa Andrews on 07-02-2022 Folate [Mass/Vol] ng/mL >5.9 [facility] Comment on above: Folate reference ran ge: >5.9 ng/mlThe WHO technical consultation on folate and vitamin [id number] has determined that folate concentrations lessthan 4 ng/ml are considered deficient. Hematocrit Auto (Bld) [Volum e fraction]Ordered By: Melissa Andrews on 07-02-2022 Hematocrit (Bld) [Volume fraction] 42.8 % 34.0-46.4 [facility] Hemoglobin [Mass/volume] in BloodOrdered By: Melissa Andrews on 07-02-2022 Hemoglobin (Bld) [Mass/Vol] 14.1 g/dL 11.8-15.4 [facility] - Chemistry and C hemistry - challengeOrdered By: Melissa Andrews on 07-02-2022 Cobalamin (Vitamin B12) [Mass/Vol] 1601 pg/mL 180-914 [facility] Leukocytes [#/volume] correc isis for nucleated erythrocytes in Blood by Automated counOrdered By: Melissa Andrews on 07-02-2022 WBC corrected for nucl RBC Auto (Bld) [#/Vol] 4.7 10*3/uL 3.8-11.6 [facility] Lymphocytes Auto (Bld) [#/Vo l]Ordered By: Melissa Andrews on 07-02-2022 Lymphocytes (Bld) [#/Vol] 1.1 10*3/uL 1.00-4.8 [facility] Lymphocytes/100 WBC Auto (Bl d)Ordered By: Melissa Andrews on 07-02-2022 Lymphocytes/100 WBC (Bld) 23.2 % . [facility] MCH Auto (RBC) [Entitic mass ]Ordered By: Melissa Andrews on 07-02-2022 MCH (RBC) [Entitic mass] 30.1 pg 24.7-34.3 [facility] MCHC Auto (RBC) [Mass/Vol]Or dered By: Melissa Andrews on 07-02-2022 MCHC (RBC) [Mass/Vol] 32.9 g/dL 32.0-35.0 [facility] MCV Auto (RBC) [Entitic vol] Ordered By: Melissa Andrews on 07-02-2022 MCV (RBC) [Entitic vol] 91.4 fL 80-100 [facility] Monocytes Auto (Bld) [#/Vol] Ordered By: Melissa Andrews on 07-02-2022 Monocytes (Bld) [#/Vol] 0.4 10*3/uL 0.0-0.8 [facility] Monocytes/100 WBC Auto (Bld) Ordered By: Melissa Andrews on 07-02-2022 Monocytes/100 WBC (Bld) 8.6 % . [facility] Neutrophils Auto (Bld) [#/Vo l]Ordered By: Melissa Andrews on 07-02-2022 Neutrophils (Bld) [#/Vol] 3.1 10*3/uL 1.8-7.7 [facility] Neutrophils/100 WBC Auto (Bl d)Ordered By: Melissa Andrews on 07-02-2022 Neutrophils/100 WBC (Bld) 65.2 % . [facility] Nucleated erythrocytes [Pres ence] in Blood by Automated countOrdered By: Melissa Andrews on 07-02-2022 Nucleated RBC Auto Ql (Bld) 0.1 /100{WBC} 0-0.5 [facility] Platelet mean volume Auto (B ld) [Entitic vol]Ordered By: Melissa Andrews on 07-02-2022 Platelet mean volume (Bld) [Entitic vol] 7.2 fL 6.3-10.7 [facility] Platelets Auto (Bld) [#/Vol] Ordered By: Melissa Andrews on 07-02-2022 Platelets (Bld) [#/Vol] 305 10*3/uL 150-450 [facility] RBC Auto (Bld) [#/Vol]Ordere d By: Melissa Andrews on 07-02-2022 RBC (Bld) [#/Vol] 4.68 10*6/uL 3.60-5.00 [facility] WBC Auto (Bld) [#/Vol]Ordere d By: Melissa Andrews on 07-02-2022 WBC (Bld) [#/Vol] 4.7 10*3/uL 3.8-11.[address] [facility] C-Reactive Proteinon 022 CRP IV 0.6 mg/dl Normal <5.0 [facility] Comment on above: Performed By: #### C RP, RF, URIC, ESR #### [facility] [address] [place], [place] [id number] Q - FELICIANO SCREEN IFA W/RFL TIT ER IFAon 08-21-2021 FELICIANO SCREEN, IFA Negative Normal NEGATIVE [facility] Comment on above: Order Comment: [facility] Testing performed at: [facility], [address] [facility], [address] [place] [address], [place], [address], Beef Splitter: Antoine Dailey MD [facility] Collection Date/Time: [facility] Results Received Date/Time: [facility] Reported Date/Time: Result Comment: FELICIANO IFA is a first line screen for detecting the presence of up to approximately 150 autoantibodies in various autoimmune diseases. A negative FELICIANO IFA result suggests an FELICIANO-associated autoimmune disease is not present at this time, but is not definitive. If there is high clinical suspicion for Sjogren's syndrome, testing for anti-SS-A/Ro antibody should be considered. Anti-Breanne-1 antibody should be considered for clinically suspected inflammatory myopathies. AC-0: Negative International Consensus on FELICIANO Patterns (https://doi.org/10.1515/qebz-8901-0365) For additional information, please refer to http://education.Duplia/faq/CJK554 (This link is being provided for informational/ educational purposes only.) Performed By: #### 2 49X #### [facility] [address] [place] [address] RBC Sedimentation Rateon ESR (Bld) [Velocity] 9.00 mm/h Normal 0.00-30.00 [facility] Comment on above: Performed By: #### C RP, RF, URIC, ESR #### [facility] [address] [place], [place] [id number] Rheumatoid Factoron 08-21-19 RF <10 Normal [facility] Comment on above: Performed By: #### C RP, RF, URIC, ESR #### [facility] [address] [place], [place] [id number] Uric Acidon 08-21-2021 URIC 6.3 mg/dL Normal 2.5-7.0 [facility] Comment on above: Result Comment: Refe rence range change 06/18/2017. Prior reference range F 2.4-5.7mg/dL. M 3.4-7.0 mg/dL. Performed By: #### C RP, RF, URIC, ESR #### [facility] [address] [place], [place] [id number] Vital Signs Date Time Vital Sign Value Performing Clinician Facility 10-26-2023 14:44-0400 Body height 162.6 cm Erickson Reeves MD Work Phone: [facility] 10-26-2023 14:44-0400 Body mass index (BMI) [Ratio] 24.61 kg/m2 Erickson Reeves MD Work Phone: [facility] 10-26-2023 14:44-0400 Body temperature 97.9 [degF] Erickson Reeves MD Work Phone: [facility] 10-26-2023 14:44-0400 Body weight 65.05 kg Erickson Reeves MD Work Phone: [facility] 10-26-2023 14:44-0400 Diastolic blood pressure 64 mm[Hg] Erickson Reeves MD Work Phone: [facility] 10-26-2023 14:44-0400 Heart rate 92 /min Erickson Reeves MD Work Phone: [facility] 10-26-2023 14:44-0400 SaO2% (BldA) [Mass fraction] 99 % Erickson Reeves MD Work Phone: [facility] 10-26-2023 14:44-0400 Systolic blood pressure 114 mm[Hg] Erickson Reeves MD Work Phone: [facility] 09-01-2023 10:55-0500 Body height 162.6 cm [facility] 09-01-2023 10:55-0500 Body mass index (BMI) [Ratio] 24.37 kg/m2 [facility] 09-01-2023 10:55-0500 Body weight 64.41 kg [facility] 09-01-2023 10:55-0500 Diastolic blood pressure 72 mm[Hg] [facility] 09-01-2023 10:55-0500 Systolic blood pressure 110 mm[Hg] [facility] 03-06-2023 10:25-0400 Body height 162.56 cm Allyssa Currie Other [employer] Other 03-06-2023 10:25-0400 Body mass index (BMI) [Ratio] 24.85 kg/m2 Allyssa Currie Other [employer] Other 03-06-2023 10:25-0400 Body temperature 98.2 [degF] Allyssa Rosey Other [employer] Other 03-06-2023 10:25-0400 Body weight 65.68 kg Allyssa Rosey Other [employer] Other 03-06-2023 10:25-0400 Diastolic blood pressure 75 mm[Hg] Allyssa Rosey Other [employer] Other 03-06-2023 10:25-0400 Respiratory rate 18 /min Allyssa Rosey Other [employer] Other 03-06-2023 10:25-0400 SaO2% (BldA) [Mass fraction] 94 % Allyssa Rosey Other [employer] Other 03-06-2023 10:25-0400 Systolic blood pressure 120 mm[Hg] Allyssa Rosey Other [employer] Other 07-02-2022 11:32-0500 Body temperature 97.8 [degF] [employer] Valencia Beatriz Work Phone: [facility] 07-02-2022 11:32-0500 Body weight 65.9 kg [employer] Valencia Beatriz Work Phone: [facility] 07-02-2022 11:32-0500 Diastolic blood pressure 83 mm[Hg] [employer] Valencia Beatriz Work Phone: [facility] 07-02-2022 11:32-0500 Heart rate 90 /min [employer] Valencia Beatriz Work Phone: [facility] 07-02-2022 11:32-0500 Respiratory rate 18 /min [employer]-Adryan Henderson Work Phone: [facility] 07-02-2022 11:32-0500 SaO2% (BldA) [Mass fraction] 96 % BEAD WIRE TAPER-Adryan Henderson Work Phone: [facility] 07-02-2022 11:32-0500 Systolic blood pressure 116 mm[Hg] BEAD WIRE TAPER-C Valencia Henderson Work Phone: [facility] 07-02-2022 11:12-0500 Body height 163.83 cm BEAD WIRE TAPER-C Valencia Henderson Work Phone: [facility] Encounters Encounter Date Encounter Type Care Provider Facility Start: 02-16-2024 End: 02-16-[address] [facility] Start: 02-16-2024 Encounter for genera l adult medical examination without abnormal findings [facility] Start: 01-25-2024 End: 01-25-2024 ambulatory [facility] Start: 01-25-2024 End: 01-25-2024 ambulatory MONTEZ Correa [facility] Start: 11-15-2023 End: 11-15-2023 ambulatory [facility] Start: 10-27-2023 Telephone encounter Savanah Hightower [facility] Start: 10-26-2023 End: 10-26-2023 Office outpatient visit 25 minutes Erickson Reeves MD [facility] Comment on above: Spider veins (Primar y Dx); Gastroesophageal reflux disease without esophagitis; Fibromyalgia; Ruptured varicose vein; Alcohol use; Moderate protein-calorie malnutrition (CMS-HCC); Dyslipidemia; Unspecified severe protein-calorie malnutrition (CMS-HCC) Start: 10-26-2023 End: 10-26-[address] [facility] Start: 09-09-2023 End: 09-10-2023 ambulatory [facility] Start: 09-01-2023 End: 09-01-2023 Office outpatient new 30 minutes [facility] Ob Graduate Rn [facility] [place] Comment on above: Breast pain, left (P rimary Dx) Start: 09-01-2023 End: 09-01-2023 ambulatory ERICKSON Galindo [facility] Start: 05-17-2023 End: 05-17-2023 Emergency department patient visit [facility] Start: 03-06-2023 End: 03-06-2023 ambulatory Allyssa Currie Other [employer] Other Start: 03-06-2023 Office outpatient ne w 20 minutes Allyssa Currie [facility] Start: 08-11-2022 End: 08-12-2022 ambulatory Mari Whitney MD Facility:[facility] Start: 07-09-2022 End: 07-10-2022 ambulatory BEAD WIRE TAPER-Adryan Henderson Work Phone: [facility] Work Phone: Start: 07-09-2022 End: 07-09-2022 Registered Recurring BEAD WIRE TAPER-Adryan Henderson Work Phone: [facility] Start: 05-01-2022 Procedure Twan Scarbrou gh Other [facility] Start: 01-28-2022 Procedure Twan Scarbrou gh Other [facility] Start: 09-12-2021 Procedure Twan Scarbrou gh Other [facility] Office Start: 06-19-2021 Procedure Twan Scarbrou gh Other [facility] Office Start: 06-06-2021 Procedure Twan Scarbrou gh Other [facility] Office Start: 04-08-2021 Office Services Twan Scarbrou gh Other [facility] Start: 03-20-2021 Procedure Twan Scarbrou gh Other [facility] Start: 11-22-2020 Procedure Twan Scarbrou gh Other [facility] Office Start: 07-19-2020 Procedure Twan Scarbrou gh Other [facility] Office Start: 06-17-2020 Procedure Twan Scarbrou gh Other [facility] Office Start: 05-20-2020 Office Services Twan Scarbrou gh Other [facility] Office Start: 05-13-2020 Procedure Twan Scarbrou gh Other [facility] Office Start: 03-29-2020 Office outpatient vi sit 15 minutes Twan Bruce Other [facility] Office Start: 03-29-2020 Procedure Twan Scarbrou gh Other [facility] Office Start: 08-18-2019 Procedure Twan Scarbrou gh Other [facility] Office Start: 01-30-2019 Procedure Twan Scarbrou gh Other [facility] Office Start: 01-13-2019 Procedure Twan Scarbrou gh Other [facility] Office Start: 12-30-2018 Office outpatient vi sit 15 minutes Twan Bruce Other [facility] Office Start: 12-12-2018 Office Services Twan Scarbrou gh Other [facility] Office Start: 10-30-2016 Office outpatient ne w 20 minutes Twan Bruce Other [facility] Office Procedures Date Procedure Procedure Detail Performing Clinician Start: 10-26-2023 Adult depression scr eening assessment Erickson Reeves MD Work Phone: Start: 09-09-2023 Mammography Erickson As if Work Phone: Start: 04-19-2023 Adult depression [facility] Start: 03-23-2023 Mammography [facility] fe Start: 03-20-2021 Laser procedure (ERYAG) Twan Bruce Start: 03-20-2021 Xeomin Twan Scar gabo Start: 04-23-2021 Radiesse, additional syringe Twan Bruce Start: 11-22-2020 Radiesse, first syringe Twan Bruce Start: 07-19-2020 Jeuveau Twan Scar gabo Start: 06-17-2020 Microneedling cosmet ic procedure Twan Bruce Start: 05-13-2020 Microneedling cosmet ic procedure Twan Bruce Start: 03-29-2020 Doc meds verified w/ pt or re Twan Bruce Start: 08-18-2019 Xeomin Twan Scar gabo Start: 01-13-2019 Radiesse, additional syringe Twan Bruce Start: 01-13-2019 Radiesse, first syringe Twan Bruce Start: 12-30-2018 Doc meds verified w/ pt or re Twan Bruce Start: 12-12-2018 Xeomin Twan Scar gabo Start: 10-30-2016 Mole removal Twan Scar gabo Plan of Treatment Date Care Activity Detail Author Start: 07-15-2025 DTaP,Tdap and Td Vaccines (2 - Td or Tdap) DTaP,Tdap and Td Vaccines (2 - Td or Tdap) [facility] Start: 10-25-2024 Adult BMI Screening Adult BMI Screen ing [facility] Start: 10-25-2024 Depression Screening Depression Scre ening [facility] Start: 10-25-2024 Tobacco Screening Tobacco Screening [facility] Start: 09-09-2024 Screening for malign ant neoplasm of breast Mammogram [facility] Start: 09-01-2024 Adult BMI Screening Adult BMI Screen ing [facility] Start: 09-01-2024 Tobacco Screening Tobacco Screening [facility] Start: 06-27-2024 End: 06-27-2024 Patient encounter procedure 06/27/2024 1:15 PM EST Office Visit [facility] [address] [place] [phone] Erich Tamez MD [address] [place] [address] [facility] Start: 05-10-2024 End: 05-10-2024 Patient encounter procedure 05/10/2024 2:30 PM EDT Office Visit [facility] [address] [place] [id number] Erickson Reeves MD [address] [facility] [place], [place] [id number] [facility] Start: 04-19-2024 Depression Screening Depression Scre ening [facility] Start: 03-23-2024 Screening for malign ant neoplasm of breast Mammogram [facility] Start: 01-07-2024 End: 01-07-2024 Patient encounter procedure 01/07/2024 8:00 AM EDT Office Visit [facility] [address] [place] [phone] Erickson Reeves MD [address] [facility] [place], [place] [id number] [facility] Start: 01-06-2024 Fall Risk Screening Fall Risk Screen ing [facility] Start: 01-06-2024 Medicare Annual Well ness Visit Medicare Annual Wellness Visit [facility] [employer] Start: 10-26-2023 End: 10-25-2024 CBC W Auto Differential panel - Blood CBC auto differential Lab Routine Alcohol use Moderate protein-calorie malnutrition (CMS-HCC) Expected: 10/26/2023 (Approximate), Expires: 10/25/2024 [employer] Work Phone: Comment on above: Expected: 10/26/2023 (Approximate), Expires: 10/25/2024 Start: 10-26-2023 End: 10-25-2024 Comprehensive metabolic 2000 panel - Serum or Plasma Comprehensive metabolic panel Lab Routine Alcohol use Expected: 10/26/2023 (Approximate), Ex[facility]: 10[facility]24 [facility] Comment on above: Expected: 10/26/2023 (Approximate), Expires: 10/25/2024 Start: 10-26-2023 End: 10-25-2024 Cyanocobalamin vitamin b-12 Vitamin B12 Lab Routine Alcohol use Expected: 10/26/2023 (Approximate), Expires: 10/25/2024 [facility] Comment on above: Expected: 10/26/2023 (Approximate), Expires: 10/25/2024 Start: 10-26-2023 End: 10-25-2024 Lipid 1996 panel - Serum or Plasma Lipid profile Lab Routine Alcohol use Dyslipidemia Expected: 10/26/2023 (Approximate), Expires: 10/25/2024 [facility] Comment on above: Expected: 10/26/2023 (Approximate), Expires: 10/25/2024 Start: 10-26-2023 End: 10-25-2024 Magnesium [Mass/volume] in Serum or Plasma Magnesium Lab Routine Alcohol use Expected: 10/26/2023 (Approximate), Expires: 10/25/2024 [facility] Comment on above: Expected: 10/26/2023 (Approximate), Expires: 10/25/2024 Start: 10-26-2023 End: 10-25-2024 TSH with Reflex TSH with Reflex Lab Routine Fibromyalgia Expected: 10/26/2023 (Approximate), Expires: 10/25/2024 [facility] Comment on above: Expected: 10/26/2023 (Approximate), Expires: 10/25/2024 Start: 10-26-2023 End: 10-25-2024 Vitamin D 25 hydroxy Vitamin D 25 hydroxy Lab Routine Alcohol use Unspecified severe protein-calorie malnutrition (CMS-HCC) Expected: 10/26/2023 (Approximate), Expires: 10/25/2024 [facility] Comment on above: Expected: 10/26/2023 (Approximate), Expires: 10/25/2024 Start: 10-14-2023 End: 10-14-2023 Patient encounter procedure 10/14/2023 1:30 PM EDT Office Visit [facility] [address] [place] [address] [place] [phone] Erickson Reeves MD [address] [place] [address] [facility] Start: 09-01-2023 End: 09-01-2024 MG Breast duct - left Views W contrast intra duct Mammography diagnostic unilateral left with CAD Imaging Routine Breast pain, left Expected: 09/01/2023, Expires: 09/01/2024 [facility] Work Phone: Comment on above: Expected: 09/01/2023 , Expires: 09/01/2024 Start: 09-01-2023 End: 09-01-2024 US Breast - left limited Ultrasound breast limited left Imaging Routine Breast pain, left Expected: 09/01/2023, Expires: 09/01/2024 [facility] Comment on above: Expected: 09/01/2023 , Expires: 09/01/2024 Start: 04-02-2023 COVID-19 Vaccine ( season) COVID-19 Vaccine () [facility] Start: 04-02-2023 Influenza vaccination Influenza Vacc ine [facility] Start: 07-02-2022 [facility] End: 10-25-2024 Folate Folate Lab Routine Alcohol use 1 Occurrences starting 10/26/2023 until 10/25/2024 [facility] Comment on above: 1 Occurrences starti ng 10/26/2023 until 10/25/2024 [facility] Immunizations Immunization Date Immunization Notes Care Provider Nithin mckeon 09-04-2022 zoster vaccine recombinant [facility] 07-06-2022 Influenza Vaccine, Quadrivalent, Adjuvanted [facility] 07-06-2022 pneumococcal polysaccharide vaccine, 23 valent [facility] 07-06-2022 influenza virus vacc ine, unspecified formulation [facility] 05-11-2018 influenza, injectabl e, quadrivalent, preservative free [facility] 05-11-2018 pneumococcal conjuga te vaccine, 13 valent [facility] 07-15-2015 seasonal influenza, intradermal, preservative free [facility] 07-15-2015 tetanus toxoid, redu domingo diphtheria toxoid, and acellular pertussis vaccine, adsorbed [facility] 09-23-2011 zoster vaccine, live [employer] Graduate R[facility] Payers Date Payer Category Payer Self-pay 2020 Private Health Insurance [employer] [id number] 2020-Present [phone] [address] [address] [place] [address] [id number] 2020 Private Health Insurance [id number] 2016 Medicare 2016 Medicare [id number] 1950 Unknown [id number] 1950 Unknown [id number] .1286 1950 Unknown [id number] [id number] .1286 1950 Unknown [id number] [id number] .1286 1950 Unknown [id number] [id number] .1286 1950 Unknown [id number] [id number] .1286 1950 Unknown [id number] [id number] .1286 1950 Unknown [id number] [id number] .1286 1950 Unknown [id number] [id number] .1286 1950 Unknown [id number] [id number] .1286 Unknown [id number] Unknown [id number] Unknown [id number] Unknown [id number] .531 Social History Date Type Detail Facility Start: [facility] [employer] Start: 07-02-2022 End: 07-06-2022 Tobacco smoking status NHIS Never smoked tobacco (finding) [facility] Start: 1950 Sex Assigned At Female [facility] Start: 05-09-2018 End: 09-12-2020 Sex Assigned At [facility] Start: 07-06-2022 Tobacco use and exposure Smoke less tobacco non-user [facility] Start: 09-01-2023 End: 10-26-2023 Alcohol intake Current non-drinker of alcohol (finding) [facility] Start: 05-09-2018 End: 09-12-2020 History of Social function [facility] Frequency of Alcohol Consumption Never [facility] Start: 1950 Sex Assigned At Not on file P [facility] Medical Equipment Procedure Code Equipment Code Equipment Origin al Text Equipment Identifier Dates Marker Brst Hydromark 18ga T3 Mammotome Stereotactic - [id number] - [id number] Start: 12-05-2020 Comment on above: Description: Left br east 3:00 Clinical Notes 07-06-2022 to 10-27-2023 Telephone Encounter - Savanah Garcia CMA - 10/27/2023 10:37 AM EDTTelephone Encounter - Savanah Garcia CMA - 10/27/2023 10:37 AM Leatha Reeves MD - 10/26/2023 2:45 PM EDT Note Date & Type Note Facility 10-27-2023 Miscellaneous Notes Formattin g of this note might be different from the original. Patient was called regarding referral for Dr. Quintero after speaking to patient she wanted cosmetic (spider and varicose vein ) and did not want to come [facility] twice for consult and surgery. Patient was not understanding how I was explaining and it was offered that someone else could call to better explain. Patient declined and said she didn't not want to schedule at this time. documented in this encounter [facility] 10-27-2023 Telephone encount er Note Patient was called regarding referral for Dr. Quintero after speaking to patient she wanted cosmetic (spider and varicose vein ) and did not want to come [facility] twice for consult and surgery. Patient was not understanding how I was explaining and it was offered that someone else could call to better explain. Patient declined and said she didn't not want to schedule at this time. [facility] 10-26-2023 History of Presen t illness Narrative Images from the original note were not included. [address] [place] [id number] Patient: Melva Dawn Date of : 1950 Encounter Date: 10/26/2023 SUBJECTIVE: Chief Complaint: Chief Complaint Patient presents with Anxiety Patient ID: Melva Dawn is a 73 y.o. female. Here today for anxiety, fibromyalgia follow up Current medications Elavil, buspar, Celexa Elavil has been working well for her, anxiety symptoms are back, mood symptoms at [place] Stressors improved after separation from her son. Extremely concerned of varicose veins in her upper extremities and spider veins in her legs. [facility], will like a repeat referral for cosmetic purposes. The following portions of the patient's history were reviewed and updated as appropriate: allergies, current medications, past family history, past medical history, past social history, past surgical history and problem list. PHYSICAL EXAMINATION: Vitals: 10/26/23 1444 BP: 114/64 Pulse: 92 Temp: 36.6 C (97.9 F) SpO2: 99% Weight: 65 kg (143 lb 6.4 oz) Height: 162.6 cm (5' 4 ) Physical Exam Vitals reviewed. Constitutional: General: She is not in acute distress. Appearance: Normal appearance. Eyes: Extraocular Movements: Extraocular movements intact. Pupils: Pupils are equal, round, and reactive to light. Cardiovascular: Rate and Rhythm: Normal rate and regular rhythm. Pulses: Normal pulses. Heart sounds: Normal heart sounds. Pulmonary: Effort: Pulmonary effort is normal. No respiratory distress. Breath sounds: Normal breath sounds. No wheezing or rhonchi. Abdominal: General: Bowel sounds are normal. There is no distension. Palpations: Abdomen is soft. There is no mass. Tenderness: There is no abdominal tenderness. There is no right CVA tenderness, left CVA tenderness or guarding. Musculoskeletal: Cervical back: Normal range of motion and neck supple. Skin: General: Skin is warm. Coloration: Skin is not jaundiced or pale. Findings: No erythema. Comments: Dilated but Well-appearing veins appreciated in hands and upper extremities. Neurological: Mental Status: She is alert and oriented to person, place, and time. Mental status is at baseline. ASSESSMENT/PLAN: Melva was seen today for anxiety. Diagnoses and all orders for this visit: Spider veins [facility] [place], [place]; Future Gastroesophageal reflux disease without esophagitis - omeprazole (PriLOSEC) 20 mg capsule; Take 1 capsule (20 mg total) by mouth every morning before breakfast. Fibromyalgia - amitriptyline (ELAVIL) 10 mg tablet; Take 1 tablet (10 mg total) by mouth nightly. Taking 1/2 tab - TSH with Reflex; Future Alcohol use - CBC auto differential; Future - Comprehensive metabolic panel; Future - Lipid profile; Future - Magnesium; Future - Vitamin D 25 hydroxy; Future - Vitamin B12; Future - Folate; Future Moderate protein-calorie malnutrition (CMS-HCC) - CBC auto differential; Future Dyslipidemia - Lipid profile; Future Unspecified severe protein-calorie malnutrition (CMS-HCC) - Vitamin D 25 hydroxy; Future Patient vascular for cosmetic purposes to help manage varicose veins and spider veins in legs. Overall exam is reassuring which was clarified with patient today. Repeat blood work for wellness and history of alcohol use. Refill provided for omeprazole and Elavil. ERICKSON REEVES MD Family Medicine Physician [facility] / [facility] 10/26/23 This note was completed with voice recognition software. The document was reviewed for errors however some may still be present. Please do not hesitate to contact/[facility] the author to verify any questions/concerns. documented in this encounter [facility] 09-01-2023 History of Presen t illness Narrative Subjective Melva Dawn is a 73 y.o.female new patient. No LMP recorded. Patient has had a hysterectomy.. She presents with c/o left breast pain for over 1 week. Pt states she felt a lump near her axilla that was tender, but is unable to feel it now. Patient used alieve and biofreeze to help with discomfort. She has also decreased her caffeine intake. Patient denies nipple discharge. Reports hx of fibrocystic breasts years ago. Current contraception: post menopausal status Regular self breast exam: no Last mammogram: March 23, 2023 negative Family history of breast cancer: yes - sister age 50s Menstrual History: OB History 2 Para 2 Term 2 AB Living 2 SAB IAB Ectopic Multiple Live Births The following portions of the patient's history were reviewed and updated as appropriate: allergies, current medications, past family history, past medical history, past social history, past surgical history and problem list. Review of Systems Pertinent items are noted in HPI, otherwise negative. Objective Vitals: 09/01/23 1055 BP: 110/72 Body mass index is 24.37 kg/m . General: alert, appears younger than stated age and cooperative Breast: Both breasts examined in standing, sitting and supine position. Breasts are symmetric. Both with normal appearance, no masses. No nipple retraction, dimpling, discharge or bleeding. No axillary or supraclavicular adenopathy, Slight tenderness located near left axilla. Skin: Skin color, texture, turgor normal. No rashes or lesions Assessment/Plan: Melva was seen today for breast problem. Diagnoses and all orders for this visit: Breast pain, left - Mammography diagnostic unilateral left with CAD; Future - Ultrasound breast limited left; Future Await imaging. Discussed SBE. Discussed heat / cool packs, tylenol / motrin, well-fitting bra for discomfort. Questions answered. Educational material provided. RTO for annual and / or PRN. - KRIS Stevenson 09/01/23 11:35 AM HALLE Hummel APRN-CNP 09/01/23 1136 documented in this encounter [facility] 03-06-2023 Evaluation note Encounter Date Diagnosis Assessment Notes Mar, Bronchitis (ICD-10 - J40) Acute bronchitis material was printed Plenty fluids, get plenty of rest. Take the azithromycin and prednisone as prescribed until gone. Use the albuterol inhaler as prescribed as needed for cough or shortness of breath. Continue take the Mucinex for congestion. Follow-up with your family physician if no improvement in 2 to 3 days [employer] Other 01-04-2023 NotePatient Education Materials Name: NereydaMelva Current Date: 08/05/2022 13:25:42 [place] : 1950 The following sheet(s) are the Patient Education Leaflets for [facility] Breast Health: Breast Self-Awareness What is breast self-awareness? Breast self-awareness is knowing how your breasts normally look and feel. Your breasts change as you go through different stages of your life. So it's important to learn what is normal for your breasts. Breast self-awareness helps you notice any changes in your breasts right away. Report any changes to your healthcare provider. Why is breast self-awareness important? Many experts now say that women should focus on breast self-awareness instead of doing a breast self-examination (BSE). These experts include the [place] [employer], the U.[place]. Preventive ServicesTask Force, and the [place] [employer]stetricians and Gynecologists. Some experts even advise not teaching women to do a BSE. That's because research hasn't shown a clear benefit to doing BSEs. Breast self-awareness is different than a BSE. Breast self-awareness isn't about following a certain method and schedule. It's about knowing what's normal for your breasts. That way you can notice even small changes right away. If you see any changes, report them to your healthcare provider. Changes to look for Call your healthcare provider if you find any changes in your breasts that concern you. These changes may include: ? A lump ? Nipple discharge other than breastmilk, especially a bloody discharge ? Swelling ? A change in size or shape ? Skin irritation, such as redness, thickening, or dimpling of the skin ? Swollen lymph nodes in the armpit ? Nipple problems, such as pain or redness If you find a lump Contact your provider if you find lumpiness in one breast, feel something different in the tissue, or feel a definite lump. Sometimes lumpiness may be due to menstrual changes. But there may be reason for concern. Your provider may want to see you right away if you have: ? Nipple discharge that is bloody ? Skin changes on your breast, such as dimpling or puckering It's normal to be upset if you find a lump. But it's important to contact your provider right away.Remember that most breast lumps are benign. This means they are not cancer. ? [id number] [employer]. [address] [place] [address]. All rights reserved. This information is not intended as a substitute for professional medical care. Always follow your healthcare professional's instructions.[facility]12-05-2022 Consult note Author Melissa Andrews [facility] [facility] July 06, 2022 2:58pm Note Date/Time July 02, 2022 4 :05pm [facility] at [address] [address] Hem/Onc Consult Note - OP Signed Patient: Melva Dawn MR#: [id number] : 1950 Acct:[id number] Age/Sex: 72 / F Type: REG RCR Copies to: CONNOR Masters MD~ HPI Date/Time of Service: Date of Service: 07/02/2022 Time of Service: 16:05 Referring Provider/PCP: Referring Provider: Valencia Henderson NP-C PCP: Caterina Delgado MD - History of Present Illness Reason for Consultation: Leukopenia Chief Complaint: Patient is here for a referral from Valencia Henderson for leukopenia. Outside labs. HPI: Dear Valencia Henderson CNP; I have seen your patient in consultation and would like to thank you for the courtesy of your referral. As you know, Melva Dawn is a very nice 72-year-old female who was referred to our outpatient hematology clinic for evaluation of chronic, mild leukopenia. Past medical history is notable for: GERD, osteopenia, depression, irritable bowel syndrome, and fibromyalgia. The patient is noticeably anxious and concerned about having a low white blood cell count. I was able to review her records and serial CBC's dating back to July2015. Her WBC count has ranged anywhere from 3.4-6.7; all of her available neutrophil counts or ANC levels have consistently been > 1500. She has no other concerning abnormalities on CBC; with no evidence of dysfunctional red cell or platelet production. No renal or hepatic insufficiency. Most recent Vitamin D level was excellent - level of 64..7. Review of systems is notable for fatigue, or what she describes as a decreased drive since being 4 years ago. 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 She is a lifelong non smoker, social alcohol use (maybe 1- 2 beers/night); no illicit drugs. She has actually cut back on her drinking over the past several years, since her . She is also having some ongoing issues with burning with urination, dysuria - but no reports of chronic UTI's. She specifically denies any issues with headaches, vision changes, fever/chills, recent/recurrent infections, night sweats, lymphadenopathy, chest pain, shortness of breath, cough, abdominal pain, nausea/vomiting, diarrhea/constipation, skin rash, pruritus, easy bruising/bleeding,No personal history of malignancy, thrombosis or blood disorders. Oncological family history is notable for: Sister of breast cancer and her dad had prostate cancer. She gets regular mammograms and cancer health screenings; all of these are up to date. Clinically, the patient feels well and has no specific complaints or focal signs/symptoms. As noted above, she does not have any recurrent or serious infections and no other changes in constitutional symptoms that would warrant concern for an underlying hematological problem at this time. She notes she was very anxious regarding this appointment, is concerned that she recently found out about her low white blood cell count. [facility] - Medical History Medical History: Medical History (Last Reviewed 07/02/22 @ 11:16 by Diana Schneider) Cataract Depression Diverticulosis Dyslipidemia Esophagitis Fibrocystic disease of breast Fibromyalgia Gastritis GERD (gastroesophageal reflux disease) Herpes simplex IBS (irritable bowel syndrome) OCD (obsessive compulsive disorder) Osteopenia Vitamin D deficiency - Surgical History Surgical History: Surgical History (Last Reviewed 07/02/22 @ 11:17 by Diana Schneider) H/O dilation and curettage H/O: hysterectomy History of surgical removal of ganglion cyst History of tonsillectomy - Family History Family History: Family History (Last Updated 07/02/22 @ 11:17 by Diana Schneider) Father Prostate cancer - Social History Smoking Status: Never smoker Substance Use Type: None Home Medications & Allergies Allergies acetaminophen [From Percocet] Adverse Reaction (Verified 06/23/22 12:57) Unknown Reaction amoxicillin Adverse Reaction (Verified 06/23/22 12:57) Headache ciprofloxacin [From Cipro] Adverse Reaction (Verified 06/23/22 12:57) Unknown Reaction escitalopram [From Lexapro] Adverse Reaction (Verified 06/23/22 12:57) Dizziness esomeprazole [From Nexium] Adverse Reaction (Verified 06/23/22 12:57) Swelling hydrocodone [From Rezira] Adverse Reaction (Verified 06/23/22 12:57) Itching mannitol [From Reclast] Adverse Reaction (Verified 06/23/22 12:57) Muscle Pain oxycodone [From Percocet] Adverse Reaction (Verified 06/23/22 12:57) Unknown Reaction pregabalin [From Lyrica] Adverse Reaction (Verified 06/23/22 12:57) Dizziness pseudoephedrine [From Rezira] Adverse Reaction (Verified 06/23/22 12:57) Itching sertraline [From Zoloft] Adverse Reaction (Verified 06/23/22 12:57) Vomiting water for injection,sterile [From Reclast] Adverse Reaction (Verified 06/23/22 12:57) Muscle Pain zoledronic acid [From Reclast] Adverse Reaction (Verified 06/23/22 12:57) Muscle Pain Home Medications amitriptyline 10 mg tablet 10 mg PO QHS 06/23/22 [History Confirmed 07/02/22] citalopram 20 mg tablet 20 mg PO DAILY 06/23/22 [History Confirmed 07/02/22] fluticasone propionate 50 mcg/actuation nasal spray,suspension 1 spray intranasal DAILY 06/23/22 [History Confirmed 07/02/22] omeprazole 20 mg capsule,delayed release 20 mg PO DAILY 06/23/22 [History Confirmed 07/02/22] Subjective Data - Diagnosis DIAGNOSIS: 1.) Mild leukopenia Subjective/ROS - Narrative: As per the HPI, otherwise 10 point review of systems is negative. Objective - Resuscitation Status Resuscitation Status: Full Code - Height/Weight Height/Weight: Height 5 ft 4.5 in Weight 65.9 kg - Vital Signs Vital Signs: 07/02/22 11:32 Temperature 97.8 F Pulse Rate [Right Brachial] 90 Respiratory Rate 18 Blood Pressure [Right Arm] 116/83 02 Sat by Pulse Oximetry 96 Oxygen Delivery Method Room Air Physical Exam Narrative: PHYSICAL EXAMINATION: GENERAL: [Alert, pleasant, no acute distress.] HEENT: [Head is normocephalic, atraumatic. No scleral icterus. Oral mucosa is pink and moist. No lesions or exudate.] NECK: [Supple without adenopathy or thyromegaly.] HEART: [Regular rate and rhythm. S1 and S2 normal.] LUNGS: [Lungs clear to auscultation bilaterally. No wheezes or crackles.] ABDOMEN: [Abdomen soft, nontender, nondistended. No hepatosplenomegaly. Bowel sounds present x4 quadrants.] BACK: [Full ROM; No CVA tenderness.] EXTREMITIES: [Warm and dry. No edema, clubbing or cyanosis.] NEUROLOGICAL: [No focal or sensory deficits. The patient is alert and oriented x3] - ECOG Performance Status ECOG Score: 0 Results - Labs Labs: Diagram of Most Recent CBC and CMP 07/02/22 13:35 Labs - Last 7 Days 07/02/22 13:35: Vitamin B12 1601 H, Folate > 22.3 07/02/22 13:35: Corrected WBC 4.7, Uncorrected WBC Count 4.7, RBC 4.68, Hgb 14.1, Hct 42.8, MCV 91.4, MCH 30.1, MCHC 32.9, RDW 13.3, Plt Count 305, MPV 7.2,Neut % (Auto) 65.2, Lymph % (Auto) 23.2, Lewis % (Auto) 8.6, Eos % (Auto) 2.2, Baso % (Auto) 0.8, Nucleat RBC Rel Count 0.1, Neut # (Auto) 3.1, Lymph # (Auto) 1.1, Lewis # (Auto) 0.4, Eos # (Auto) 0.1, Baso # (Auto) 0.0 Assessment and Plan (1) Leukopenia Melva Dawn is a very nice 72-year-old female who was referred to our outpatient hematology clinic for evaluation of chronic, mild leukopenia. Past medical history is notable for: GERD, osteopenia, depression, irritable bowel syndrome, and fibromyalgia. The patient is noticeably anxious and concerned about having a low white blood cell count. Discussed the case with Dr. Villanueva, collaboratively we were able to review her records and serial CBC's dating back to July 2015. Her WBC count has ranged anywhere from 3.4-6.7; all of her available neutrophil counts or ANC levels have consistently been > 1500. She has no other concerning abnormalities on CBC; with no evidence of abnormal red cell (normal MCV and RDW)or platelet production. No renal or hepatic insufficiency. Most recent Vitamin Dlevel was excellent - level of 64.7. In the absence of recurrent infections and no evidence of ANC values < 1500 - there is no indication to proceed with bone marrow biopsy/aspiration at this time. Furthermore, the patient has no other obvious abnormalities on CBC that would suggest an underlying hematologic disorder. We discussed that in general, she has a low end of normal WBC count but this appears to be here normal value and has not significantly changed over the past several years. Reassured patientthat there is no specific treatment for this, other than routine blood tests with CBC (this may be done her PCP) and treatment, monitoring of recurrent infection. - if she develops further abnormalities with other cell lines (Red cells, platelets or neutrophil count) or has issues with and infection and ANC < 1500; we may consider doing a bone marrow biopsy at that time. We will check B12 and folate and notify patient via telephone of these results. Otherwise, patient may follow up with hematology on as needed basis. (2) Dysuria Recent dysuria, but no reports of recent or recurrent infection. She has pending appointment and cystoscopy with Dr. Tamez of urology this month. - Time with Patient Total Time Spent with Patient (Consult): 45 mins - review outside records, labs dating back to 2014, multiple thoughtful questions, Coordination of Care & Counseling Time: Greater than 50% of time spent with patient was for coordination of care (as documented) and cdir-op-[id number] counseling of patient and/or family. Dictated By: Melissa Andrews APRN DD/ [id number] Signed By: <Electronically signed by MAGDALENA Andrews> 07/06/22 [id number] [facility] Work Phone: Evaluation noteNo assessment information available [facility] Work Phone: Evaluation note* Diagnosis Onset Date Resolution Status Dysuria acute Leukopenia acute [facility] Work Phone: Evaluation note* Diagnosis Breast pain, left- Primary documented in this encounter [facility] SystemEvaluation note* Diagnosis Spider veins- Primary Gastroesophageal reflux disease without esophagitis Esophageal reflux Fibromyalgia Unspecified myalgia and myositis Ruptured varicose vein Alcohol use Other problems related to lifestyle Moderate protein-calorie malnutrition (CMS-HCC) Dyslipidemia Other and unspecified hyperlipidemia Unspecified severe protein-calorie malnutrition (CMS-HCC) documented in this encounter [facility] [address] SystemHistory general Narrative - Reported* Type Description Date Surgical History HYSTERECTOMY Surgical History OVARY REMOVED Surgical History D&C Hospitalization History SEE ABOVE [employer] Other Instructions* Attachments The following attachments cannot be sent through Care Everywhere. * Mastalgia (Samoan) * How to Perform Breast Self-Examination (Samoan) [facility] [address] [facility] SystemInstructionsNot on file documented in this encounterPro[facility] System[facility] SystemInstructionsNot on file documented in this encounterProMemorial Health SystemThe [facility] SystemReason for referral (narrative)* Consultation (Routine) - Pending Review Specialty Diagnoses / Procedures Referred By Jessica olguin Referred To Contact Vascular Surgery Diagnoses Spider veins Ruptured varicose vein Erickson Reeves MD [address] [place] [address] Marisa Quintero MD [address], [address] [address] Referral ID Status Reason Start Date Expiration Date Visits Requested Visits Authorized [id number] Pending Review Specialty Services Required 10/26/2023 10/25/2024 1 1 [facility] Summary Purpose Family History No Family History Records Found Relationship Condition Age at Onset Recorded Date/T anai father Malignant neoplasm of prostate Unknown Advance Directives No Advanced Directives Records Found Advance Directive Response Recorded Date/ Time Advance Directives No June 1:31pm Chief Complaint and Reason for Visit Chief Complaint Leukopenia Reason for Visit Dysuria Leukopenia Additional Source Comments INFORMATION SOURCE (unrecogn ized section and content) DATE CREATED AUTHOR 08/22/2021 [facility] dical Specialist DATE CREATED AUTHOR AUTHOR'S ORGANIZ ATION 10/17/2022 [facility] DATE CREATED AUTHOR AUTHOR'S ORGANIZ ATION 05/18/2023 [facility] DATE CREATED AUTHOR AUTHOR'S ORGANIZ ATION 08/15/2023 [facility] DATE CREATED AUTHOR AUTHOR'S ORGANIZ ATION 09/13/2023 [facility] DATE CREATED AUTHOR AUTHOR'S ORGANIZ ATION 01/27/2024 [facility] DATE CREATED AUTHOR AUTHOR'S ORGANIZ ATION 01/27/2024 [facility] DATE CREATED AUTHOR AUTHOR'S ORGANIZ ATION 02/20/2024 [facility] Goals (unrecognized section and content) Goals may be documented in a n alternate sectionGoals may be documented in an alternate sectionNo InformationGoals may be documented in an alternate sectionNot on filedocumented as of this encounterNot on filedocumented as of this encounterNot on filedocumented as of this encounter Care Teams (unrecognized sec tion and content) Team Status: Active Member Role Status Dates Valencia A Beatriz , BEAD WIRE [employer]ER-C Referring Provider Active Melissa Andrews APRN Attending Provider Active Caterina Delgado MD Primary Care Provider Active Team Status: Active Member Role Status Dates Caterina Delgado MD Primary Care Provider Active 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 Start Date End Date Erickson Reeves MD [address] [place] [address] PCP - General Internal Medicine 09/08/22 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 This clinical summary was aggregated from multiple sources. Caution should be exercised in using it in the provision of clinical care. This summary normalizes information from multiple sources, and as a consequence, information in this document may materially change the coding, format and clinical context of patient data. In addition, data may be omitted in some cases. CLINICAL DECISIONS SHOULD BE BASED ON THE PRIMARY CLINICAL RECORDS. [facility]. provides no warranty or guarantee of the accuracy or completeness of information in this document.
[2024-04-18 13:47] VITALS: BP 124/60; PULSE 90; O2SAT 95
== END 2024-04-18 13:47 | disposition home or self-care (01) ==
LOC: VC 12:45
PROVIDERS: PCP Radiology Diagnostic Radiology; Visit Provider Radiology Diagnostic Radiology
DX: I83.813 Varicose veins of bilateral lower extremities with pain (principal)
CPT/HCPCS: 36471

== ENCOUNTER 2024-04-26 12:57 | Outpatient (OUT) | payer MEDICARE, SELFPAY ==
--- NOTE | 2024-04-25 10:14 | V.VEINS.HP ---
Vital Signs 04/26/24 13:56 BP 121/67 BP Location Left Brachial BP Position Sitting BP Cuff Size Adult BP Source Manual Cuff Respiration 16 Pulse 94 H Pulse Source Monitor Pulse Oximetry (%) 95 Oxygen Delivery Method Room Air Comment The patient's blood pressure is elevated. Varicose Veins Patient in today for sclerotherapy Rahul Maldonado MD personally performed the services described in this documentation, as scribed by Matt Hein RN in my presence and it is both accurate and complete. Matt Maldonado RN, am scribing for, and in the presence of, Dr. Rahul Steen and in the presence of the patient. knee: bilateral (patient c/o varicose veins bilateral legs), calf: bilateral, ankle: bilateral and anderson: bilateral aching, dull and tender 3 20 years Worsened in recent months: Yes standing elevating extremities, compression stockings and exercise Reports muscle spasms of leg, heaviness, limb pain and edema History of lower extremity trauma: No Superficial thrombophlebitis: No Family history of varicose veins: yes Has patient had previous lower extremity venous surgery: Yes Patient has previously received the following treatment(s) for lower extremity varicose veins: Reports phlebectomy and sclerotherapy Does patient have a history of : yes Does patient intend to have future pregnancies: no Has patient had lower extremity venous scan with relux testing: Yes Support hose used: Yes Problems walking or doing physical activity: Yes How does it affect you: often had to stop and elevate legs/feet Do you walk much: Yes Do you stand much: Yes Review of Systems ROS Narrative Rahul Maldonado MD personally performed the services described in this documentation, as scribed by Matt Hein RN in my presence and it is both accurate and complete. Matt Maldonado RN, am scribing for, and in the presence of, Dr. Rahul Steen and in the presence of the patient. Status of ROS 10 or more systems reviewed and unremarkable except as noted in history and below Cardiovascular Reports: edema Integumentary/Breast Reports: non-healing lesion and changes in skin color Neurological Reports: weakness in extremities Hematologic/Lymphatic Reports: easy bruising and easy bleeding [facility] Medical History (Updated 02/22/24 @ 08:34 by Matt Hein) Fibromyalgia ?M79.7 - Fibromyalgia (ICD-10) Phlebitis and thrombophlebitis of superficial vessels of right lower extremity ?I80.01 - Phlebitis and thrombophlebitis of superficial vessels of right lower extremity (ICD-10) Phlebitis and thrombophlebitis of superficial vessels of left lower extremity ?I80.02 - Phlebitis and thrombophlebitis of superficial vessels of left lower extremity (ICD-10) Pain due to varicose veins of both lower extremities ?I83.813 - Varicose veins of bilateral lower extremities with pain (ICD-10) Surgical History (Updated 04/26/24 @ 13:57 by Matt Hein) S/P sclerotherapy of varicose veins ?Z98.890 - Other specified postprocedural states (ICD-10) ?Z86.79 - Personal history of other diseases of the circulatory system (ICD-10) S/P sclerotherapy of varicose veins ?Z98.890 - Other specified postprocedural states (ICD-10) ?Z86.79 - Personal history of other diseases of the circulatory system (ICD-10) H/O: hysterectomy ?Z90.710 - Acquired absence of both cervix and uterus (ICD-10) Family History (Updated 02/22/24 @ 08:35 by Matt Hein) Other Family history of cancer Family history of stroke Varicose veins of bilateral lower extremities with pain Social History (Updated 02/22/24 @ 08:37 by Matt Hein) Within the past year, how often did you have a drink containing alcohol: 2-4 times a month Smoking status: Never smoker Non-prescribed substance use: denies use Meds Home Medications and Allergies Home Medications ?Medication ?Instructions ?Recorded ?Confirmed ?Type amitriptyline .ROUTE 02/22/24 History citalopram .ROUTE 02/22/24 History Allergies Allergy/AdvReac Type Severity Reaction Status Date / Time aspirin Allergy Rash Verified 02/22/24 10:54 povidone-iodine Allergy Rash Verified 02/22/24 10:54 [From Betadine] Exam Narrative Exam Narrative: IRahul MD personally performed the services described in this documentation, as scribed by Matt Hein RN in my presence and it is both accurate and complete. IMatt RN, am scribing for, and in the presence of, Dr. Rahul Steen and in the presence of the patient. Constitutional Documenting provider has reviewed patient's vital signs: yes Common normals: oriented x3 Cardio Peripheral pulses: dorsalis pedis pulses present Extremity Common normals: normal capillary refill General: edema Right lower extremity: lower leg Right lower leg: inspection and palpation Left lower extremity: lower leg Left lower leg: inspection (Mild bruising medial thigh) and palpation Neuro Common normals: oriented x3 Assessment and Plan Assessment and Plan (1) Pain due to varicose veins of both lower extremities: Plan additional sclerotherapy Rahul Maldonado MD personally performed the services described in this documentation, as scribed by Matt Hein RN in my presence and it is both accurate and complete. Matt Maldonado RN, am scribing for, and in the presence of, Dr. Rahul Steen and in the presence of the patient. Procedures Procedure Instructions Procedures sclerotherapy: Risks and benefits of the procedure were discussed at length and informed written consent was obtained.? Time-out procedure was performed and the correct patient and procedure were confirmed.? Staff present during time-out: Matt Hein RN and Rahul Steen MD.? Patient prepped and procedure performed in usual sterile fashion. Injections performed by Dr. Steen and Matt Hein RN Sclerosing Agent:?? 4cc 0.5% Polidocanol Site Injected: left leg Number of Injections: 32 Anesthesia: Supercooled air The patient tolerated the procedure well without complication.? Hemostasis was obtained and thigh-high compression stocking was applied by patient.? Instructed patient to wear stocking for at least 96 hours and sleep with it and only remove for showering.? Will wear stocking for 2 weeks.? The patient verbalizes understanding and states they will comply.? Patient was given post-procedure instructions. Patient was discharged in good condition.? Scheduled to undergo additional injection sclerotherapy as necessary. Rahul Maldonado MD personally performed the services described in this documentation, as scribed by Matt Hein RN in my presence and it is both accurate and complete. Matt Maldonado RN, am scribing for, and in the presence of, Dr. Rahul Steen and in the presence of the patient.
--- NOTE | 2024-04-25 10:16 | P.DS_ITS ---
Discharge Plan Discharge Disposition: Home, Self-Care Outpatient Diagnostics: VC INJ Sclerosing SOLMULT Vein (Routine) Timeframe: 2 Weeks Facility: [facility] - Location: [facility] Ordered By: Rahul Steen Follow Up Appointments: f/u in future as necessary Patient Instructions: Polidocanol (By injection) Print Language: Citizen [place] Discharge Date/Time: 04/26/24 14:00
--- NOTE | 2024-04-26 12:59 | VEIN_ITS ---
[address] [address] Patient Name: DIANA MEYER MRN: [id number] date: 1950 Sex: F Assigned Patient Location: Current Patient Location: Accession/Order Number: [id number] Exam Date: 04/26/2024 12:59 Report Date: 04/26/2024 14:25 At the request of: ALEX LYNCH Procedure: VC INJ Sclerosing SOLMULT Vein EXAMINATION: VC INJ Sclerosing SOLMULT Vein HISTORY: I83.813 - Varicose veins of bilateral lower extremities w... The risks and benefits of the procedure were explained at length to the patient and informed written consent was obtained. The procedure was performed under sterile technique. The patient's leg was wrapped with Coban and postprocedural verbal and written instructions provided. Matt Hein RN was present and assisted. SCLEROSANT: 2mL 0.5% Polidocanol. VEIN(S) INJECTED: 32 veins in the left leg. VISUALIZATION: Ultrasound was not used to visualize the sclerosant. ANESTHESIA: Supercooled air. COMPLICATIONS: None. Electronically authenticated by: JAY SOTELO Date: 04/26/2024 14:25
--- OUTSIDE RECORDS SUMMARY | 2024-04-26 13:02 | XMS_ITS | CCD ---
Author Organization 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 Name Role Phone Twan Barrera Primary Care Physician Unavail able Twan Barrera Unavailable Unavailable ROSALBA Henderson Referring Provider MAGDALENA Andrews Attending Provider MD Caterina Delgado Primary Care Provider [phone] Mari Whitney MD Attending Unava ilable Allyssa [...] Primary Care Unavailable MONTEZ PANDYA Referring Unavailable LEANDRO, MUHAMID M Primary Care [...] Facility Mold (2 sources) Mold Substance Allergy [facility] (14 sources) Mold Allergy to substance (disorder) [employer] (16 sources) Grasses Allergy to substance (disorder) [employer] (16 sources) Wool Alcohol Allergy to substance (disorder) [employer] (16 sources) Other Allergy to substance (disorder) [facility] (4 sources) Acetaminophen; Translations: [acetaminophen] Drug Allergy 2 Unknown Reaction [facility] (4 sources) Amoxicillin; Translations: [amoxicillin] Drug Allergy 2 Headache [facility] (4 sources) Ciprofloxacin; Translations: [ciprofloxacin] Drug Allergy 2 Unknown Reaction [facility] (4 sources) Escitalopram; Translations: [escitalopram] Drug Allergy 2 Dizziness [facility] (4 sources) Esomeprazole; Translations: [esomeprazole] Drug Allergy 2 Swelling [facility] (4 sources) HYDROcodone; Translations: [hydrocodone] Drug Allergy 2 Itching [facility] (4 sources) Mannitol; Translations: [mannitol] Drug Allergy 2 Muscle Pain [facility] (4 sources) oxyCODONE; Translations: [oxycodone] Drug Allergy 2 Unknown Reaction [facility] (4 sources) pregabalin; Translations: [pregabalin] Drug Allergy 2 Dizziness [facility] (4 sources) Pseudoephedrine ; Translations: [pseudoephedrin e] Drug Allergy 2 Itching [facility] (4 sources) Sertraline; Translations: [sertraline] Drug Allergy 2 Vomiting [facility] (4 sources) zoledronic acid; Translations: [zoledronic acid] Drug Allergy 2 Muscle Pain [facility] (4 sources) water for injection,steri le; Translations: [water for injection,steri le] Propensity to adverse reactions 2 Muscle Pain [facility] (1 source) No Known Medication Allergies; Translations: [No Known Medication Allergies] Propensity to adverse reactions to drug (disorder) [facility] (7 sources) Hypochlorite; Translations: [BLEACH (SODIUM HYPOCHLORITE)] Drug Allergy 8 [facility] (7 sources) Iodine; Translations: [IODINE] Drug Allergy 2 [facility] (7 sources) Soap; Translations: [SOAP] Propensity to adverse reactions to drug 8 Rash [facility] (7 sources) Wool; Translations: [WOOL] Propensity to adverse reactions to drug 8 Itching [facility] Medications Current Medications Medication Drug Class(es) Dates Sig (Normalized) Sig (Original) [id number] 200 actuat albuterol 0.09 mg/actuat metered dose [...] every week Vitamin D (Ergocalciferol) 1.25 MG (78579 UT) 1 capsule Orally once a week [...] once daily Fluticasone Propionate (Flonase) 50 mcg/actuation [place],Suspension Active 1 SPRAY INTRANASAL Daily June 23, [...] 10/26/2023 Active take 1 capsule by mo [facility] once daily before mealtime omeprazole 20 mg [...] Bilirubin Ql (U) Negative Normal NEG [facility] Comment on above: Performed By: #### U A #### [facility] ([id number]) [address], [address] [place] [address] BLOOD/HGB Negative Normal NEG [facility] Comment on above: Performed By: #### U A #### [facility] ([id number]) [address], [address] [place] [address] Color (U) YELLOW Normal YELLOW [facility] Comment on above: Performed By: #### U A #### [facility] ([id number]) [address], [address] [place] [address] Glucose Ql (U) Negative Normal NEG [facility] Comment on above: Performed By: #### U A #### [facility] ([id number]) [address], [address] [place] [address] Ketones Ql (U) Trace Abnormal NEG [facility] Comment on above: Performed By: #### U A #### [facility] ([id number]) [address], [address] [place] [address] Leukocyte esterase Test strip Ql (U) Small Abnormal NEG [facility] Comment on above: Performed By: #### U A #### [facility] ([id number]) [address], [address] [place] [address] MUCOUS PRESENT Abnormal NONE [facility] Comment on above: Performed By: #### U A #### [facility] ([id number]) [address], [address] [place] [address] Nitrite Ql (U) Negative Normal NEG [facility] Comment on above: Performed By: #### U A #### [facility] ([id number]) [address], [address] [place] [address] pH (U) 6.5 [pH] Normal 5.0-8.5 [facility] Comment on above: Performed By: #### U A #### [facility] ([id number]) [address] [place] [address] [address] [place] [address] Protein Ql (U) Negative Normal NEG [facility] Comment on above: Performed By: #### U A #### [facility] ([id number]) [address] [place] [address], [address] [place] [address] R.B.CELLS 1 /hpf Normal 0-5 [facility] Comment on above: Performed By: #### U A #### [facility] ([id number]) [address] [place] [address] [address] [place] [address] Specific gravity (U) [Rel density] 1.016 Normal 1.003-1.035 [facility] Comment on above: Performed By: #### U A #### [facility] ([id number]) [address] [place] [address], [address] [place] [address] SQUAMOUS EPITHELIUM 1 /hpf Normal 0-5 [facility] Comment on above: Performed By: #### U A #### [facility] ([id number]) [address] [place] [address], [address] [place] [address] TURBIDITY CLEAR Normal CLEAR [facility] Comment on above: Performed By: #### U A #### [facility] ([id number]) [address] [place] [address], [address] [place] [address] Urobilinogen (U) [Mass/Vol] mg/dL Normal <1.1 [facility] Comment on above: Performed By: #### U A #### [facility] ([id number]) [address] [place] [address], [address] [place] [address] W.B.CELLS 2 /hpf Normal 0-5 [facility] Comment on above: Performed By: #### U A #### [facility] ([id number]) [facility] [address], [address] [place] [address] URINE CULTUREon 01-25-2024 Bacteria identified Cx Nom (U) CULTURE RESULTS 10-50,000 ORGANISMS/mL NORMAL UROGENITAL BRYANT Normal [facility] Comment on above: Performed By: #### 6 30-4 #### [facility] ([id number]) [address], [address] [place] [address] VAGINITIS PANEL PCRon 2023 VAGINITIS PANEL PCR [...] clinical presentation to determine patient diagnosis. Normal [facility] Comment on above: Performed By: #### V PPCR #### [facility] ([id number]) [address], [address] [place] [address] CBC AND AUTO DIFFon 11-15-19 24 ABSOLUTE BASOPHIL 0.1 X10E9/L Normal 0.0-0.2 [facility] Comment on above: Performed By: #### C BCA, CMP, 73977-8, 56259-5, TSHR, 84085-5, 2132-9, 2284-8 #### [facility] ([id number]) [address], [address] [place] [address] ABSOLUTE NEUTROPHIL 5.6 X10E9/L Normal 1.5-6.6 [facility] Comment on above: Performed By: #### C BCA, CMP, 63533-6, 82883-7, TSHR, 30969-8, 9, 2283-8 #### [facility] ([id number]) [address], [address] [place] [address] Basophils/100 WBC (Bld) 0.8 % Normal [facility] Comment on above: Performed By: #### C BCA, CMP, 18289-6, 39444-9, TSHR, 31022-7, 9, 2283-8 #### [facility] ([id number]) [address], [address] [place] [address] Eosinophils (Bld) [#/Vol] 0.1 10*3/uL Normal 0.0-0.4 [facility] Comment on above: Performed By: #### C BCA, CMP, 23290-3, 75941-7, TSHR, 08491-7, 9, 2283- #### [facility] ([id number]) [address], [address] [place] [address] Eosinophils/100 WBC (Bld) 1.9 % Normal [facility] Comment on above: Performed By: #### C BCA, CMP, 21481-4, 25696-1, TSHR, 43857-5, 2132-04, 2284-03 #### [facility] ([id number]) [address], [address] [place] [address] Erythrocyte distribution width (RBC) [Ratio] 13.3 % Normal 11.5-15.0 [facility] Comment on above: Performed By: #### C BCA, CMP, 25216-4, 11704-5, TSHR, 10173-8, 9, 2283- #### [facility] ([id number]) [address], [address] [place] [address] Hematocrit (Bld) [Volume fraction] 41.9 % Normal 35-47 [facility] Comment on above: Performed By: #### C BCA, CMP, 49685-9, 75004-1, TSHR, 66670-8, 2132-04, 2284-03 #### [facility] ([id number]) [address], [facility] [address] [place] [address] Hemoglobin (Bld) [Mass/Vol] 14.2 g/dL Normal 11.7-15.5 [facility] Comment on above: Performed By: #### C BCA, CMP, 72618-1, 14454-0, TSHR, 67928-9, 2132-04, 2284-03 #### [facility] ([id number]) [address], [address] [address] Lymphocytes (Bld) [#/Vol] 1.0 10*3/uL Normal 1.0-3.5 [facility] Comment on above: Performed By: #### C BCA, CMP, 86539-1, 05802-8, TSHR, 50369-7, 2132-04, 2284-03 #### [facility] ([id number]) [address], [address] [address] Lymphocytes/100 WBC (Bld) 13.6 % Normal [facility] Comment on above: Performed By: #### C BCA, CMP, 83612-3, 11521-2, TSHR, 14886-1, 2132-04, 2284-03 #### [facility] ([id number]) [address] [place] [address] MCH (RBC) [Entitic mass] 31.1 pg Normal 27-34 [facility] Comment on above: Performed By: #### C BCA, CMP, 49771-7, 39421-8, TSHR, 25566-8, 2132-04, 2283- #### [facility] ([id number]) [address], [address] [place] [address] MCHC (RBC) [Mass/Vol] 33.8 g/dL Normal 32-[address] [facility] Comment on above: Performed By: #### C BCA, CMP, 58703-1, 92989-7, TSHR, 61972-5, 2131-9, 2283-8 #### [facility] ([id number]) [address], [address] [place] [address] MCV (RBC) [Entitic vol] 92 fL Normal 80-100 [facility] Comment on above: Performed By: #### C BCA, CMP, 81704-5, 18678-0, TSHR, 51748-5, 2132-04, 2284-03 #### [facility] ([id number]) [address], [address] [place] [address] Monocytes (Bld) [#/Vol] 0.5 10*3/uL Normal 0-0.9 [facility] Comment on above: Performed By: #### C BCA, CMP, 48014-8, 17555-7, TSHR, 01674-9, 2132-04, 2283- #### [facility] ([id number]) [address], [address] [place] [address] Monocytes/100 WBC (Bld) 7.3 % Normal [facility] Comment on above: Performed By: #### C BCA, CMP, 47044-6, 53000-1, TSHR, 42962-4, 9, 2283- #### [facility] ([id number]) [address], [address] [place] [address] Neutrophils/100 WBC (Bld) 76.4 % Normal [facility] Comment on above: Performed By: #### C BCA, CMP, 88975-6, 34944-1, TSHR, 75560-0, 2132-04, 2283- #### [facility] ([id number]) [address], [address] [place] [address] Platelet mean volume (Bld) [Entitic vol] 7.6 fL Normal 7-12 [facility] Comment on above: Performed By: #### C BCA, CMP, 69623-5, 34722-5, TSHR, 55983-0, 2131-9, 2283-8 #### [facility] ([id number]) [address], [address] [place] [address] Platelets (Bld) [#/Vol] 264 10*3/uL Normal 150-450 [facility] Comment on above: Performed By: #### C BCA, CMP, 00496-3, 63724-0, TSHR, 32475-1, 2131-9, 2283-8 #### [facility] ([id number]) [address], [address] [place] [address] RBC COUNT 4.55 X10E12/L Normal 3.80-5.20 [facility] Comment on above: Performed By: #### C BCA, CMP, 30917-4, 55449-9, TSHR, 70289-6, 9, 2283-8 #### [facility] ([id number]) [address], [address] [place] [address] WBC (Bld) [#/Vol] 7.3 10*3/uL Normal 4.0-11.0 [facility] Comment on above: Performed By: #### C BCA, CMP, 86637-5, 22202-5, TSHR, 60359-3, 2131-9, 2283-8 #### [facility] ([id number]) [address] [place] [address] COMPREHENSIVE METABOLIC PANE Deion 11-15-2023 Albumin [Mass/Vol] 4.3 g/dL Normal 3.2-5.3 [facility] Comment on above: Performed By: #### C BCA, CMP, 05469-1, 13149-2, TSHR, 16226-4, 2-9, 2284-8 #### [facility] ([id number]) [address], [address] [place] [address] ALP [Catalytic activity/Vol] 57 U/L Normal 39-130 [facility] Comment on above: Performed By: #### C BCA, CMP, 56370-1, 79624-7, TSHR, 16255-5, 2131-9, 2284-8 #### [facility] ([id number]) [address], [address] [place] [address] ALT [Catalytic activity/Vol] 16 U/L Normal 0-31 [facility] Comment on above: Performed By: #### C BCA, CMP, 51678-5, 31882-2, TSHR, 16505-2, 2131-9, 4-8 #### [facility] ([id number]) [address], [address] [place] [address] Anion gap [Moles/Vol] 9 mmol/L Normal 5-[address] [facility] Comment on above: Performed By: #### C BCA, CMP, 87401-9, 04309-0, TSHR, 11151-3, 2131-9, 4-8 #### [facility] ([id number]) [address], [address] [place] [address] AST [Catalytic activity/Vol] 20 U/L Normal 0-41 [facility] Comment on above: Performed By: #### C BCA, CMP, 74828-5, 50073-6, TSHR, 52818-5, 2131-9, 4-8 #### [facility] ([id number]) [address], [address] [place] [address] Bilirubin [Mass/Vol] 0.7 mg/dL Normal 0.3-1.2 [facility] Comment on above: Performed By: #### C BCA, CMP, 20272-3, 44837-5, TSHR, 77326-9, 2131-9, 2284-8 #### [facility] ([id number]) [address], [address] [place] [address] Calcium [Mass/Vol] 9.6 mg/dL Normal 8.5-10.5 [facility] Comment on above: Performed By: #### C BCA, CMP, 66430-6, 47730-3, TSHR, 62989-2, 2131-9, 4-8 #### [facility] ([id number]) [address], [address] [place] [address] Chloride [Moles/Vol] 103 mmol/L Normal 98-109 [facility] Comment on above: Performed By: #### C BCA, CMP, 07440-6, 06904-7, TSHR, 17531-4, 2131-9, 2283-8 #### [facility] ([id number]) [address], [address] [place] [address] CO2 [Moles/Vol] 29 mmol/L Normal 22-32 [facility] Comment on above: Performed By: #### C BCA, CMP, 22984-2, 97900-8, TSHR, 24121-4, 2131-9, 4-8 #### [facility] ([id number]) [address], [address] [place] [address] Creatinine [Mass/Vol] 0.96 mg/dL Normal 0.40-1.[address] [facility] Comment on above: Result Comment: METH OD TRACEABLE TO IDMS STANDARD Performed By: #### C BCA, CMP, 19444-7, 76574-8, TSHR, 88608-4, 2131-9, 4-8 #### [facility] ([id number]) [address], [address] [place] [address] GFR/1.73 sq M.predicted among non-blacks MDRD (S/P/Bld) [Vol rate/Area] 63 mL/min/{1.73_m2} Normal >59 [facility] Comment on above: Result Comment: Reported eGFR is based on the CKD-EPI 2020 equation that does not use a race coefficient. Performed By: #### C BCA, CMP, 63004-3, 13247-9, TSHR, 33712-5, 9, 8 #### [facility] ([id number]) [address], [address] [place] [address] Glucose [Mass/Vol] 85 mg/dL Normal 65-99 [facility] Comment on above: Performed By: #### C BCA, CMP, 86172-0, 77753-9, TSHR, 81591-2, 2132-04, 2284-03 #### [facility] ([id number]) [address], [address] [place] [address] Potassium [Moles/Vol] 4.1 mmol/L Normal 3.5-5.[address] [facility] Comment on above: Performed By: #### C BCA, CMP, 30461-6, 96894-8, TSHR, 92543-5, 2132-04, 2284-03 #### [facility] ([id number]) [address], [address] [place] [address] Protein [Mass/Vol] 7.0 g/dL Normal 6.0-8.0 [facility] Comment on above: Performed By: #### C BCA, CMP, 93602-0, 92958-4, TSHR, 94260-5, 9, 2284-03 #### [facility] ([id number]) [address], [address] [place] [address] Sodium [Moles/Vol] 141 mmol/L Normal 134-146 [facility] Comment on above: Performed By: #### C BCA, CMP, 32423-1, 66306-7, TSHR, 53860-7, 2132-04, 2284-03 #### [facility] ([id number]) [address], [address] [place] [address] Urea nitrogen [Mass/Vol] 18 mg/dL Normal 5-27 [facility] Comment on above: Performed By: #### C BCA, CMP, 69509-4, 85433-4, TSHR, 18916-3, 9, 2284-03 #### [facility] ([id number]) [address] [place] [address] Folate [Mass/Vol]on 11-15-19 24 FOLIC ACID 10.8 ng/mL Normal >5.8 [facility] Comment on above: Result Comment: NEW REFERENCE RANGE Performed By: #### C BCA, CMP, 48124-6, 78737-3, TSHR, 21782-6, 2132-04, 2284-03 #### [facility] ([id number]) [address], [address] [place] [address] Lipid 1996 panelon 4 Cholesterol [Mass/Vol] 202 mg/dL High 150-200 [facility] Comment on above: Performed By: #### C BCA, CMP, 36048-0, 45607-9, TSHR, 41478-1, 2132-04, 2284-03 #### [facility] ([id number]) [address], [address] [place] [address] Cholesterol in HDL [Mass/Vol] 53 mg/dL Normal >39 [facility] Comment on above: Result Comment: HDL <40 mg/dL - High Risk HDL > or = 40mg/dL- Desirable HDL >60 mg/dL - Negative Risk Performed By: #### C BCA, CMP, 61408-5, 46596-5, TSHR, 31176-0, 2132-04, 2284-8 #### [facility] ([id number]) [address], [address] [place] [address] Cholesterol in LDL [Mass/Vol] 131 mg/dL High <130 [facility] Comment on above: Result Comment: LDL <100 mg/dL - Desirable LDL >160 mg/dL - High Risk Performed By: #### C BCA, CMP, 35639-1, 53486-6, TSHR, 20372-8, 2132-04, 8 #### [facility] ([id number]) [address] [place] [address] Cholesterol in VLDL [Mass/Vol] 18 mg/dL Normal 0-30 [facility] Comment on above: Performed By: #### C BCA, CMP, 73034-4, 01534-4, TSHR, 04704-5, 9, 2283-8 #### [facility] ([id number]) [address] [place] [address] CHOLESTEROL:HDL 3.8 Normal 1.0-5.0 [facility] Comment on above: Performed By: #### C BCA, CMP, 35848-9, 16746-0, TSHR, 22810-0, 9, 2283-8 #### [facility] ([id number]) [address] [place] [address] Triglyceride [Mass/Vol] 90 mg/dL Normal 27-150 [facility] Comment on above: Performed By: #### C BCA, CMP, 25921-7, 61452-0, TSHR, 70075-0, 9, 2283-8 #### [facility] ([id number]) [address], [address] [place] [address] MAGNESIUMon 11-15-2023 Magnesium [Mass/Vol] 2.0 mg/dL Normal 1.8-2.6 [facility] Comment on above: Performed By: #### C BCA, CMP, 55714-6, 62322-5, TSHR, 35706-4, 2132-04, 2283-8 #### [facility] ([id number]) [address], [address] [place] [address] TSH WITH REFLEXon 11-15-2023 TSH 0.97 uIU/mL Normal 0.49-4.67 [facility] Comment on above: Performed By: #### C BCA, CMP, 42597-9, 26603-0, TSHR, 52138-0, 2132-04, 2283-8 #### [facility] ([id number]) [address], [address] [place] [address] VITAMIN B12on 11-15-2023 Cobalamin (Vitamin B12) [Mass/Vol] 329 pg/mL Normal 180-914 [facility] Comment on above: Performed By: #### C BCA, [facility], 20715-3, , TSHR, 31341-5, 2132-04, 2283-8 #### [facility] ([id number]) [address], [address] [place] [address] Vitamin D+Metabolites [Mass/ Vol]on 11-15-2023 VITAMIN D 25 HYD TOT 73.3 ng/mL Normal 30-100 [facility] Comment on above: Result Comment: Vitamin D status 25 [place] Vitamin D Deficiency <20 ng/mL Insufficiency 20-29 ng/mL Sufficiency 30-100 ng/mL Toxicity >100 ng/mL NOTE: A pediatric reference range has not been established by the petrophysicist of this kit. The [place] [employer] recommends a Vitamin D level of = or >20ng/mL in infants and children. Performed By: #### C BCA, CMP, 18065-0, 03472-4, TSHR, 13761-1, 2132-9, 2284-8 #### [facility] ([id number]) [address], [address] [place] [address] MAMM DIAGNOSTIC UNILAT LT W CADon 09-09-2023 [...] PM 2 b MAMM 1 YR Normal [facility] Gynecology Office/Clinic Not sepideh 08-11-2022 Gynecology Office/Clinic Note Chief Complaint New patient annual human intelligence exam. No pap d/t age. No mammogram on file. No colonoscopy on file. No bone density on file. History of Present Illness 72-year-old G2, P2 presents as new patient for annual exam and to establish care. She overall is healthy and well. She has complaints about urethral irritation. Recently saw urology through [facility] states had cystoscopy last month, was told to put estrogen cream on her urethra. She lost the prescription and would like a second opinion. All of her medical care is done through [facility], lives in [facility] [place]. She is up-to-date with her other medical [...] She has many allergies, takes vitamin D 35506 oral units every other week. She does [...] 1. Encounter for routine gynecological examination Ordered: [id number] [facility] New Preventative Visit; 65 years and older 2. Atrophic vaginitis Ordered: [id number] [facility] New Preventative Visit; 65 years and older Orders: estradiol topical, 1 g, VAG, HS (at bedtime), use 1-2 x weekly, # 42.5 g, 3 Refill(s), Pharmacy: [facility] #[id number] Medical Decision Making Chronic conditions NOT treated [...] billable services. (more content not included)... Normal [facility] Basophils Auto (Bld) [#/Vol] Ordered By: Melissa Andrews on 07-02-2022 Basophils (Bld) [#/Vol] 0.0 10*3/uL 0.0-0.2 [facility] Basophils/100 WBC Auto (Bld) Ordered By: Melissa Andrews on 07-02-2022 Basophils/100 WBC (Bld) 0.8 % . [facility] Eosinophils Auto (Bld) [#/Vo l]Ordered By: Melissa Andrews on 07-02-2022 Eosinophils (Bld) [#/Vol] 0.1 10*3/uL 0.0-0.45 [facility] Eosinophils/100 WBC Auto (Bl d)Ordered By: Melissa Andrews on 07-02-2022 Eosinophils/100 WBC (Bld) 2.2 % . [facility] Erythrocyte distribution wid th Auto (RBC) [Ratio]Ordered By: Melissa Andrews on 07-02-2022 Erythrocyte distribution width (RBC) [Ratio] 13.3 % 11.9-15.3 [facility] Folate [Mass/volume] in Seru m or PlasmaOrdered By: Melissa Andrews on 07-02-2022 Folate [Mass/Vol] ng/mL >5.9 [facility] Comment on above: Folate reference ran ge: >5.9 ng/mlThe WHO technical consultation on folate and vitamin [id number] has determined that folate concentrations lessthan 4 ng/ml are considered deficient. Hematocrit Auto (Bld) [Volum e fraction]Ordered By: Melissa Andrews on 07-02-2022 Hematocrit (Bld) [Volume fraction] 42.8 % 34.0-46.4 [facility] Hemoglobin [Mass/volume] in BloodOrdered By: Melissa Andrews on 07-02-2022 Hemoglobin (Bld) [Mass/Vol] 14.1 g/dL 11.8-15.4 [facility] Laboratory - Chemistry and C hemistry - challengeOrdered By: Melissa Andrews on 07-02-2022 Cobalamin (Vitamin B12) [Mass/Vol] 1601 pg/mL 180-914 [facility] Leukocytes [#/volume] correc isis for nucleated erythrocytes in Blood by Automated counOrdered By: Melissa Andrews on 07-02-2022 WBC corrected for nucl RBC Auto (Bld) [#/Vol] 4.7 10*3/uL 3.8-11.6 [facility] Lymphocytes Auto (Bld) [#/Vo l]Ordered By: Melissa Andrews on 07-02-2022 Lymphocytes (Bld) [#/Vol] 1.1 10*3/uL 1.00-4.8 [facility] Lymphocytes/100 WBC Auto (Bl d)Ordered By: Melissa Andrews on 07-02-2022 Lymphocytes/100 WBC (Bld) 23.2 % . [facility] MCH Auto (RBC) [Entitic mass ]Ordered By: Melissa Andrews on 07-02-2022 MCH (RBC) [Entitic mass] 30.1 pg 24.7-34.3 [facility] MCHC Auto (RBC) [Mass/Vol]Or dered By: Melissa Andrews on 07-02-2022 MCHC (RBC) [Mass/Vol] 32.9 g/dL 32.0-35.0 [facility] MCV Auto (RBC) [Entitic vol] Ordered By: Melissa Andrews on 07-02-2022 MCV (RBC) [Entitic vol] 91.4 fL 80-100 [facility] Monocytes Auto (Bld) [#/Vol] Ordered By: Melissa Andrews on 07-02-2022 Monocytes (Bld) [#/Vol] 0.4 10*3/uL 0.0-0.8 [facility] Monocytes/100 WBC Auto (Bld) Ordered By: Melissa Andrews on 07-02-2022 Monocytes/100 WBC (Bld) 8.6 % . [facility] Neutrophils Auto (Bld) [#/Vo l]Ordered By: Melissa Andrews on 07-02-2022 Neutrophils (Bld) [#/Vol] 3.1 10*3/uL 1.8-7.7 [facility] Neutrophils/100 WBC Auto (Bl d)Ordered By: Melissa Andrews on 07-02-2022 Neutrophils/100 WBC (Bld) 65.2 % . [facility] Nucleated erythrocytes [Pres ence] in Blood by Automated countOrdered By: Melissa Andrews on 07-02-2022 Nucleated RBC Auto Ql (Bld) 0.1 /100{WBC} 0-0.5 [facility] Platelet mean volume Auto (B ld) [Entitic vol]Ordered By: Melissa Andrews on 07-02-2022 Platelet mean volume (Bld) [Entitic vol] 7.2 fL 6.3-10.7 [facility] Platelets Auto (Bld) [#/Vol] Ordered By: Melissa Andrews on 07-02-2022 Platelets (Bld) [#/Vol] 305 10*3/uL 150-450 [facility] RBC Auto (Bld) [#/Vol]Ordere d By: Melissa Andrews on 07-02-2022 RBC (Bld) [#/Vol] 4.68 10*6/uL 3.60-5.00 [facility] WBC Auto (Bld) [#/Vol]Ordere d By: Melissa Andrews on 07-02-2022 WBC (Bld) [#/Vol] 4.7 10*3/uL 3.8-11.6 [facility] C-Reactive Proteinon 022 CRP IV 0.6 mg/dl Normal <5.0 [facility] Comment on above: Performed By: #### C RP, RF, URIC, ESR #### [facility] [address] [place], [place] [id number] Q - FELICIANO SCREEN IFA W/RFL TIT ER IFAon 08-21-2021 FELICIANO SCREEN, IFA Negative Normal NEGATIVE [facility] Comment on above: Order Comment: [facility] Testing performed at: [employer], [facility], [address] [facility], [address] [place] [address], [place], [address], [place]: Antoine Dailey MD [facility] Collection Date/Time: [facility] [...] AC-0: Negative International Consensus on FELICIANO Patterns (https://doi.org/10.1515/dkof-2026-7375) For additional information, please refer to http://education.[facility] [facility]/faq/ERS454 (This link is being provided for informational/ educational purposes only.) Performed By: #### 2 49X #### [facility] Default [address] [place] [address] RBC Sedimentation Rateon ESR (Bld) [Velocity] 9.00 mm/h Normal 0.00-30.00 [facility] Comment on above: Performed By: #### C RP, RF, URIC, ESR #### [facility] [address] [place], [place] [id number] Rheumatoid Factoron 08-21-19 RF <10 Normal [facility] Comment on above: Performed By: #### C RP, RF, URIC, ESR #### [facility] [address] [place], [place] [id number] Uric Acidon 08-21-2021 URIC 6.3 mg/dL Normal 2.5-7.0 [facility] Comment on above: Result Comment: Refe rence range change 06/18/2017. Prior reference range F 2.4-5.7mg/dL. M 3.4-7.0 mg/dL. Performed By: #### C RP, RF, URIC, ESR #### [facility] [address] [place], [place] [id number] Vital Signs Date Time Vital Sign Value Performing Clinician Facility 10-26-2023 14:44-0400 Body height 162.6 cm Erickson Reeves MD Work Phone: [facility] 10-26-2023 14:44-0400 Body mass index (BMI) [Ratio] 24.61 kg/m2 Erickson Reeves MD Work Phone: [facility] 10-26-2023 14:44-0400 Body temperature 97.9 [degF] Erickson Reeves MD Work Phone: [facility] 10-26-2023 14:44-0400 Body weight 65.05 kg Erickson Reeves MD Work Phone: [facility] 10-26-2023 14:44-0400 Diastolic blood pressure 64 mm[Hg] Erickson Reeves MD Work Phone: [facility] 10-26-2023 14:44-0400 Heart rate 92 /min Erickson Reeves MD Work Phone: [facility] 10-26-2023 14:44-0400 SaO2% (BldA) [Mass fraction] 99 % Erickson Reeves MD Work Phone: [facility] 10-26-2023 14:44-0400 Systolic blood pressure 114 mm[Hg] Erickson Reeves MD Work Phone: [facility] 09-01-2023 10:55-0500 Body height 162.6 cm [facility] 09-01-2023 10:55-0500 Body mass index (BMI) [Ratio] 24.37 kg/m2 [facility] 09-01-2023 10:55-0500 Body weight 64.41 kg [facility] 09-01-2023 10:55-0500 Diastolic blood pressure 72 mm[Hg] [facility] 09-01-2023 10:55-0500 Systolic blood pressure 110 mm[Hg] [facility] 03-06-2023 10:25-0400 Body height 162.56 cm Allyssa Currie Other [facility] Other 03-06-2023 10:25-0400 Body mass index (BMI) [Ratio] 24.85 kg/m2 Allyssa Currie Other [facility] Other 03-06-2023 10:25-0400 Body temperature 98.2 [degF] Allyssa Rosey Other [facility] Other 03-06-2023 10:25-0400 Body weight 65.68 kg Allyssa Rosey Other [facility] Other 03-06-2023 10:25-0400 Diastolic blood pressure 75 mm[Hg] Allyssa Rosey Other [facility] Other 03-06-2023 10:25-0400 Respiratory rate 18 /min Allyssa Rosey Other [facility] Other 03-06-2023 10:25-0400 SaO2% (BldA) [Mass fraction] 94 % Allyssa Rosey Other [facility] Other 03-06-2023 10:25-0400 Systolic blood pressure 120 mm[Hg] Allyssa Rosey Other [facility] Other 07-02-2022 11:32-0500 Body temperature 97.8 [degF] TREATING INSPECTOR-C Valencia Beatriz Work Phone: [facility] 07-02-2022 11:32-0500 Body weight 65.9 kg TREATING INSPECTOR-C Valencia Beatriz Work Phone: [facility] 07-02-2022 11:32-0500 Diastolic blood pressure 83 mm[Hg] TREATING INSPECTOR-C Valencia Beatriz Work Phone: [facility] 07-02-2022 11:32-0500 Heart rate 90 /min TREATING INSPECTOR-C Valencia Beatriz Work Phone: [facility] 07-02-2022 11:32-0500 Respiratory rate 18 /min TREATING INSPECTOR-Adryan Henderson Work Phone: [facility] 07-02-2022 11:32-0500 SaO2% (BldA) [Mass fraction] 96 % TREATING INSPECTOR-Adryan Henderson Work Phone: [facility] 07-02-2022 11:32-0500 Systolic blood pressure 116 mm[Hg] TREATING INSPECTOR-C Valencia Henderson Work Phone: [facility] 07-02-2022 11:12-0500 Body height 163.83 cm TREATING INSPECTOR-C Valencia Henderson Work Phone: [facility] Encounters Encounter Date Encounter Type Care Provider Facility Start: 02-16-2024 End: 02-16-2024 ambulatory [facility] Start: 02-16-2024 Encounter for genera l adult medical examination without abnormal findings [facility] Start: 01-25-2024 End: 01-25-2024 ambulatory [facility] Start: 01-25-2024 End: 01-25-2024 ambulatory MONTEZ Cor[facility] Start: 11-15-2023 End: 11-15-2023 ambulatory [facility] Start: 10-27-2023 Telephone encounter Savanah Hightower [facility] Start: 10-26-2023 End: 10-26-2023 Office outpatient visit 25 minutes [facility]kson Reeves [facility] Comment on above: Spider veins (Primar y Dx); Gastroesophageal reflux disease without esophagitis; Fibromyalgia; Ruptured varicose vein; Alcohol use; Moderate protein-calorie malnutrition (CMS-HCC); Dyslipidemia; Unspecified severe protein-calorie malnutrition (CMS-HCC) Start: 10-26-2023 End: 10-26-2023 ambulatory [facility] Start: 09-09-2023 End: 09-10-2023 ambulatory [facility] Start: 09-01-2023 End: 09-01-2023 Office outpatient new 30 minutes [facility] Ob Inspector [employer] [facility] Comment on above: Breast pain, left (P rimary Dx) Start: 09-01-2023 End: 09-01-2023 ambulatory ERICKSON Galindo LEANDRO [facility] Start: 05-17-2023 End: 05-17-2023 Emergency department patient visit TAYLER CLARK [facility] Start: 03-06-2023 End: 03-06-2023 ambulatory Allyssa Currie Other [facility] Other Start: 03-06-2023 Office outpatient ne w 20 minutes Allyssa Currie [facility] Start: 08-11-2022 End: 08-12-2022 ambulatory Mari Whitney MD Facility:[facility] Start: 07-09-2022 End: 07-10-2022 ambulatory TREATING INSPECTOR-Adryan Henderson Work Phone: [facility] Work Phone: Start: 07-09-2022 End: 07-09-2022 Registered Recurring TREATING INSPECTOR-Adryan Henderson Work Phone: [facility] Start: 05-01-2022 Procedure Twan Scarbrou gh [...] Start: 05-13-2020 Procedure Twan Scarbrou gh Other [facility] Start: 03-29-2020 Office outpatient vi sit 15 minutes Twan Bruce Other [facility] Start: 03-29-2020 Procedure Twan Scarbrou gh Other [facility] Start: 08-18-2019 Procedure Twan Scarbrou gh Other [facility] Office Start: 01-30-2019 Procedure Twan Scarbrou gh Other [facility] Start: 01-13-2019 Procedure Twan Scarbrou gh Other [facility] Start: 12-30-2018 Office outpatient vi sit 15 minutes Twan Bruce Other [facility] Office Start: 12-12-2018 Office Services Wtan Scarbrou gh Other [facility] Office Start: 10-30-2016 Office outpatient ne w 20 minutes Twan Bruce Other [facility] Office Procedures Date Procedure Procedure Detail Performing Clinician Start: 10-26-2023 Adult depression scr eening assessment Erickson Reeves MD Work Phone: Start: 09-09-2023 Mammography Erickson As if Work Phone: Start: 04-19-2023 Adult [facility] Start: 03-23-2023 Mammography [facility] Start: 03-20-2021 Laser procedure [...] Scar gabo Start: 01-13-2019 Radiesse, additional syringe Twna Bruce Start: 01-13-2019 Radiesse, first syringe Twan Bruce Start: 12-30-2018 Doc meds verified w/ pt or re Twan Bruce Start: 12-12-2018 Xeomin Twan Scar gabo Start: 10-30-2016 Mole removal Twan Scar gabo Plan of Treatment Date Care Activity Detail Author Start: 07-15-2025 DTaP,Tdap and Td Vaccines (2 - Td or Tdap) DTaP,Tdap and Td Vaccines (2 - Td or Tdap) [facility] Start: 10-25-2024 Adult BMI Screening Adult BMI Screen ing [facility] Start: 10-25-2024 Depression Screening Depression Scre ening [facility] Start: 10-25-2024 Tobacco Screening Tobacco Screening [facility] Start: 09-09-2024 Screening for malign ant neoplasm of breast Mammogram [facility] Start: 09-01-2024 Adult BMI Screening Adult BMI Screen ing [facility] Start: 09-01-2024 Tobacco Screening Tobacco Screening [facility] Start: 06-27-2024 End: 06-27-2024 Patient encounter procedure 06/27/2024 1:15 PM EST Office Visit [facility] [address] [place] [phone] Erich Tamez MD [address] [place] [address] [facility] Start: 05-10-2024 End: 05-10-2024 Patient encounter procedure 05/10/2024 2:30 PM EDT Office Visit [facility] [address] [place] [phone] Erickson Reeves MD [address] [facility] [place], [place] [id number] [facility] Start: 04-19-2024 Depression Screening Depression Scre ening [facility] Start: 03-23-2024 Screening for malign ant neoplasm of breast Mammogram [facility] Start: 01-07-2024 End: 01-07-2024 Patient encounter procedure 01/07/2024 8:00 AM EDT Office Visit [facility] [address] [place] [phone] Erickson Reeves MD [address] [facility] [place], [place] [id number] [facility] Start: 01-06-2024 Fall Risk Screening Fall Risk Screen ing [facility] Start: 01-06-2024 Medicare Annual Well ness Visit Medicare Annual Wellness Visit [facility] [employer] Start: 10-26-2023 End: 10-25-2024 CBC W Auto Differential panel - Blood CBC auto differential Lab Routine Alcohol use Moderate protein-calorie malnutrition (CMS-HCC) Expected: 10/26/2023 (Approximate), Expires: 10/25/2024 [employer] Work Phone: Comment on above: Expected: 10/26/2023 (Approximate), Expires: 10/25/2024 Start: 10-26-2023 End: 10-25-2024 Comprehensive metabolic 2000 panel - Serum or Plasma Comprehensive metabolic panel Lab Routine Alcohol use Expected: 10/26/2023 (Approximate), Expires: 10/25/2024 [facility] on above: Expected: 10/26/2023 (Approximate), Expires: 10/25/2024 Start: 10-26-2023 End: 10-25-2024 Cyanocobalamin vitamin b-12 Vitamin B12 Lab Routine Alcohol use Expected: 10/26/2023 (Approximate), Expires: 10/25/2024 [facility] Comment on above: Expected: 10/26/2023 (Approximate), Expires: 10/25/2024 Start: 10-26-2023 End: 10-25-2024 Lipid 1996 panel - Serum or Plasma Lipid profile Lab Routine Alcohol use Dyslipidemia Expected: 10/26/2023 (Approximate), Expires: 10/25/2024 [facility] Comment on above: Expected: 10/26/2023 (Approximate), Expires: 10/25/2024 Start: 10-26-2023 End: 10-25-2024 Magnesium [Mass/volume] in Serum or Plasma Magnesium Lab Routine Alcohol use Expected: 10/26/2023 (Approximate), Expires: 10/25/2024 [facility] Comment on above: Expected: 10/26/2023 (Approximate), Expires: 10/25/2024 Start: 10-26-2023 End: 10-25-2024 TSH with Reflex TSH with Reflex Lab Routine Fibromyalgia Expected: 10/26/2023 (Approximate), Expires: 10/25/2024 [facility] Comment on above: Expected: 10/26/2023 (Approximate), Expires: 10/25/2024 Start: 10-26-2023 End: 10-25-2024 Vitamin D 25 hydroxy Vitamin D 25 hydroxy Lab Routine Alcohol use Unspecified severe protein-calorie malnutrition (CMS-HCC) Expected: 10/26/2023 (Approximate), Expires: 10/25/2024 [facility] Comment on above: Expected: 10/26/2023 (Approximate), Expires: 10/25/2024 Start: 10-14-2023 End: 10-14-2023 Patient encounter procedure 10/14/2023 1:30 PM EDT Office Visit [facility] [address] [place] [address] [place] [address] Erickson Reeves MD [address] [place] [address] [facility] Start: 09-01-2023 End: 09-01-2024 MG Breast duct - left Views W contrast intra duct Mammography diagnostic unilateral left with CAD Imaging Routine Breast pain, left Expected: 09/01/2023, Expires: 09/01/2024 [facility] Work Phone: Comment on above: Expected: 09/01/2023 , Expires: 09/01/2024 Start: 09-01-2023 End: 09-01-2024 US Breast - left limited Ultrasound breast limited left Imaging Routine Breast pain, left Expected: 09/01/2023, Expires: 09/01/2024 [facility] Comment on above: Expected: 09/01/2023 , Expires: 09/01/2024 Start: 04-02-2023 COVID-19 Vaccine ( season) COVID-19 Vaccine () [facility] Start: 04-02-2023 Influenza vaccination Influenza Vacc ine [facility] Start: 07-02-2022 [facility] End: 10-25-2024 Folate Folate Lab Routine Alcohol use 1 Occurrences starting 10/26/2023 until 10/25/2024 [facility] Comment on above: 1 Occurrences starti ng 10/26/2023 until 10/25/2024 [facility] Immunizations Immunization Date Immunization Notes Care Provider Nithin mckeon 09-04-2022 zoster vaccine recombinant [facility] 07-06-2022 Influenza Vaccine, Quadrivalent, Adjuvanted [facility] 07-06-2022 pneumococcal polysaccharide vaccine, 23 valent [facility] 07-06-2022 influenza virus vacc ine, unspecified formulation [facility] 05-11-2018 influenza, injectabl e, quadrivalent, preservative free [facility] 05-11-2018 pneumococcal conjuga te vaccine, 13 valent [facility] 07-15-2015 seasonal influenza, intradermal, preservative free [facility] 07-15-2015 tetanus toxoid, redu domingo diphtheria toxoid, and acellular pertussis vaccine, adsorbed [facility] 09-23-2011 zoster vaccine, live [facility] Inspector [employer] [facility] Payers Date Payer Category Payer Self-pay 2020 Private Health Insurance [employer] [id number] 2020-Present [phone] [address] [address] [place] [address] [id number] 2020 Private Health Insurance [id number] 2016 Medicare 2016 Medicare [id number] 1950 Unknown [id number] [id number] .196 1950 Unknown [id number] 2.16.840.1.524880.3.579.2 .1286 1950 Unknown [id number] 2.16.840.1.117521.3.579.2 .1286 1950 Unknown [id number] 2.16.840.1.334600.3.579.2 .1286 1950 Unknown [id number] 2.16.840.1.557774.3.579.2 .1286 1950 Unknown [id number] 2.16.840.1.001945.3.579.2 .1286 1950 Unknown [id number] 2.16.840.1.335779.3.579.2 .1286 1950 Unknown [id number] 2.16.840.1.265435.3.579.2 .1286 1950 Unknown [id number] 2.16.840.1.545733.3.579.2 .1286 1950 Unknown [id number] 2.16.840.1.910525.3.579.2 .1286 Unknown [id number] 2.840.1.241949.3.441 Unknown [id number] [id number] Unknown [id number] [id number] Unknown [id number] 2.16.840.1.617938.3.579.2 .531 Social History Date Type Detail Facility Start: [facility] Start: 07-02-2022 End: 07-06-2022 Tobacco smoking status NHIS Never smoked tobacco (finding) [facility] Start: 1950 Sex Assigned At Female F [facility] Start: 05-09-2018 End: 09-12-2020 Sex Assigned At [facility] Start: 07-06-2022 Tobacco use and exposure Smoke less tobacco non-user [facility] Start: 09-01-2023 End: 10-26-2023 Alcohol intake Current non-drinker of alcohol (finding) [facility] Start: 05-09-2018 End: 09-12-2020 History of Social function [facility] Frequency of Alcohol Consumption Never [facility] Start: 1950 Sex Assigned At Not on file P [facility] Medical Equipment Procedure Code Equipment Code Equipment Origin al Text Equipment Identifier Dates Marker Brst Hydromark 18ga T3 Mammotome Stereotactic - [id number] - [id number] Start: 12-05-2020 Comment on above: Description: [...] at this time. documented in this encounter [facility] 10-27-2023 Telephone encount er Note Patient [...] not want to schedule at this time. [facility] 10-26-2023 History of Presen t illness Narrative Images from the original note were not included. [address] [place] [phone] Patient: Melva Dawn Date of : 1950 Encounter Date: 10/26/2023 SUBJECTIVE: Chief Complaint: Chief Complaint Patient presents with Anxiety Patient ID: Melva Dawn is a 73 y.o. female. Here today for anxiety, fibromyalgia follow up Current medications Elavil, buspar, Celexa Elavil has been working well for her, anxiety symptoms are back, mood symptoms at [place] [employer] improved after separation from her son. Extremely concerned of varicose veins in her upper extremities and spider veins in her legs. [facility] will like a repeat referral for [...] this visit: Spider veins [facility] [place], [place]; Future Gastroesophageal reflux disease without esophagitis [...] Elavil. ERICKSON REEVES MD Family Medicine Physician [facility] / [facility] 10/26/23 This note was completed with voice recognition software. The document was reviewed for errors however some may still be present. Please do not hesitate to contact/[facility] the author to verify any questions/concerns. documented in this encounter [facility] 09-01-2023 History of Presen t illness Narrative [...] APRN-CNP 09/01/23 1136 documented in this encounter [facility] 03-06-2023 Evaluation note Encounter Date Diagnosis Assessment [...] no improvement in 2 to 3 days [facility] Other 01-04-2023 NotePatient Education Materials Name: NereydaMelva [...] breast self-examination (BSE). These experts include the [employer], the U.S. Preventive ServicesTask Force, and the [place] [employer] of Obstetricians and Gynecologists. Some experts [...] This means they are not cancer. ? [id number] [employer]. [address] [place] [address]. All rights reserved. This information is not intended as a substitute for professional medical care. Always follow your healthcare professional's instructions.[facility]12-05-2022 Consult note Author Melissa Andrews [facility] July 06, 2022 2:58pm Note Date/Time July 02, 2022 4 :05pm [facility] at [address] [address] Hem/Onc Consult Note - OP Signed Patient: Melva Dawn MR#: [id number] : 1950 Acct:[id number] Age/Sex: 72 / F Type: REG RCR Copies to: CONNOR Masters MD~ HPI Date/Time of Service: Date of Service: 07/02/2022 Time of Service: 16:05 Referring Provider/PCP: Referring Provider: Valencia Henderson NP-C PCP: Catreina Delgado MD - History of Present Illness [...] 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 She is a lifelong non smoker, [...] about her low white blood cell count. [facility] - Medical History Medical History: Medical History [...] % (Auto) 65.2, Lymph % (Auto) 23.2, Merrick % (Auto) 8.6, Eos % (Auto) 2.2, Baso % (Auto) 0.8, Nucleat RBC Rel Count 0.1, Neut # (Auto) 3.1, Lymph # (Auto) 1.1, Merrick # (Auto) 0.4, Eos # (Auto) 0.1, [...] for coordination of care (as documented) and dyid-hq-qshq counseling of patient and/or family. Dictated By: Melissa Andrews APRN DD/ [id number] Signed By: <Electronically signed by MAGDALENA Andrews> 07/06/22 60[address] [facility] Work Phone: Evaluation noteNo assessment information available [facility] Work Phone: Evaluation note* Diagnosis Onset Date Resolution Status Dysuria acute Leukopenia acute [facility] Work Phone: Evaluation note* Diagnosis Breast pain, left- Primary [facility]* Diagnosis Spider veins- Primary Gastroesophageal reflux disease without esophagitis Esophageal reflux Fibromyalgia Unspecified myalgia and myositis Ruptured varicose vein Alcohol use Other problems related to lifestyle Moderate protein-calorie malnutrition (CMS-HCC) Dyslipidemia Other and unspecified hyperlipidemia Unspecified severe protein-calorie malnutrition (CMS-HCC) documented [facility] System[facility] general Narrative - Reported* Type Description Date Surgical History HYSTERECTOMY Surgical History OVARY REMOVED Surgical History D&C Hospitalization History SEE ABOVE BombBomb Other Instructions* Attachments The following attachments cannot be sent through Care Everywhere. * Mastalgia (Slovenian) * How to Perform Breast Self-Examination (Slovenian) [facility] Joturl SystemInstructionsNot on file documented in this encounterPro[facility] HospitalWipit SystemInstructionsNot on file documented in this encounterPro[facility] HospitalWipit SystemReason for referral (narrative)* Consultation (Routine) - Pending Review Specialty Diagnoses / Procedures Referred By Jessica olguin Referred To Contact Vascular Surgery Diagnoses Spider veins Ruptured varicose vein Erickson Reeves MD [address] [place] [address] Marisa Quintero MD [address], [address] [address] Referral ID Status Reason Start Date Expiration Date Visits Requested Visits Authorized [id number] Pending Review Specialty Services Required 10/26/2023 10/25/2024 1 1 [facility] Summary Purpose Family History No Family [...] section and content) DATE CREATED AUTHOR 08/22/2021 [facility] dical Specialist DATE CREATED AUTHOR AUTHOR'S ORGANIZ ATION 10/17/2022 [facility] DATE CREATED AUTHOR AUTHOR'S ORGANIZ ATION 05/18/2023 [facility] DATE CREATED AUTHOR AUTHOR'S ORGANIZ ATION 08/15/2023 [facility] DATE CREATED AUTHOR AUTHOR'S ORGANIZ ATION 09/13/2023 [facility] DATE CREATED AUTHOR AUTHOR'S ORGANIZ ATION 01/27/2024 [facility] DATE CREATED AUTHOR AUTHOR'S ORGANIZ ATION 01/27/2024 [facility] DATE CREATED AUTHOR AUTHOR'S ORGANIZ ATION 02/20/2024 [facility] Ambulatory [facility] Goals (unrecognized section [...] Role Status Dates Valencia A Beatriz , TREATING INSPECTOR-C Referring Provider Active Melissa Andrews APRN Attending Provider Active Caterina Delgado MD Primary Care Provider Active Team Status: Active Member Role Status Dates Caterina Delgado MD Primary Care Provider Active Office Machinery Or Equipment Installer Relationship Specialty Start Date End Date Erickson Reeves MD [address] [place] [address] PCP - General Internal Medicine 09/08/22 [employer]inery Or Equipment Installer Relationship Specialty Start Date End Date Erickson Reeves MD [address], [place] [address] PCP - General Internal Medicine 09/08/22 Office Machinery Or Equipment Installer Relationship Specialty Start Date End Date Erickson Reeves MD [address], [place] [address] PCP - General Internal Medicine 09/08/22 REASON [...] BE BASED ON THE PRIMARY CLINICAL RECORDS. [employer] [facility]. provides no warranty or guarantee of the accuracy or completeness of information in this document.
[2024-04-26 13:56] VITALS: BP 121/67; PULSE 94; O2SAT 95
== END 2024-04-26 14:00 | disposition home or self-care (01) ==
LOC: VC 12:57
PROVIDERS: PCP Radiology Diagnostic Radiology; Visit Provider Radiology Diagnostic Radiology
DX: I83.813 Varicose veins of bilateral lower extremities with pain (principal)
CPT/HCPCS: 36471